=== PATIENT | male | born 1940 | race Caucasian/White ===

== ENCOUNTER → 2017-11-09 | Outpatient (CLI) | payer MEDICARE ==
[~2017-11-09] MED LIST: ASPI-715 PO; CLO75 PO; LISI-1 PO; MEGARED; METO-222 PO; NIT4 SL; PRAV40TA78 PO; SIMV-44 PO
[2017-11-09 09:26] LABS: PLATELET COUNT, AUTOMATED 348 K/uL (150-450)
== END ==
LOC: LAB 08:58
PROVIDERS: ATTEND Nurse Practitioner Family
DX: E78.00 Pure hypercholesterolemia, unspecified (principal); I10 Essential (primary) hypertension; R73.9 Hyperglycemia, unspecified; I21.9 Acute myocardial infarction, unspecified; K21.9 Gastro-esophageal reflux disease without esophagitis
CPT/HCPCS: 36415; 82040; 82247; 82310; 82374; 82435; 82465; 82565; 82947; 83036; 83718; 84075; 84132; 84155; 84295; 84450; 84460; 84478; 84520; 85025

== ENCOUNTER 2017-12-07 10:18 | Emergency (ER) | payer OTHER, MEDICARE ==
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
[2017-12-07] MEDS ORDERED: METO1TAB38 (10:31)
--- NOTE | 2017-12-07 11:37 | RADIOLOGY IMAGING REPORT ---
FACILITY: [facility] PATIENT NAME: Shayan Snow : 1940 MR: [id number] V: [id number] EXAM DATE: ORDERING PHYSICIAN: NIRALI FRAUSTO TECHNOLOGIST: Location: [facility] Patient: Shayan Snow : 1940 Visit/Account:[id number] Date of Sevice: 12/07/2017 EXAMINATION: CT Head without intravenous contrast CT Cervical spine without intravenous contrast HISTORY: Trauma. TECHNIQUE: Head: Axial images were obtained from the skull base to the vertex without intravenous contrast. Sa gittal and coronal reformatted images are also submitted. Cervical spine: Axial images were obtained from the skull base through the upper thoracic spine with out IV contrast administration. Coronal and sagittal reformatted images were obtained from the axial source data. One of the following dose optimization techniques was utilized in the performance of this exam: Autom ated exposure control; adjustment of the mA and/or kV according to the patient's size; or use of an i terative reconstruction technique. Specific details can be referenced in the facility's radiology C T exam operational policy. COMPARISON: Noncontrast head CT dated 10/04/2011. FINDINGS: HEAD: Brain volume: Mild generalized volume loss. Ventricles: Negative. Acute ischemic changes: None. Hemorrhage: None. Masses / edema: None. Diaz-white: Stable mild right cerebellar and right occipital encephalomalacia. White matter: Negative. Vessels: Carotid siphon and vertebral artery calcification. Normal density in the dural venous sinus es. Extra-axial: Negative. Calvarium / skull base: Negative. Visualized sinuses / orbits: Negative. CERVICAL SPINE: Alignment: Straightening and slight reversal of the normal cervical lordosis. Cranio-cervical junction: Mild degenerative changes. Otherwise negative. Vertebral bodies: Negative. Posterior elements: Multilevel facet hypertrophy. Hardware: None. Disc Spaces: Multilevel degenerative disc disease. Soft tissues: Arterial calcifications. No soft tissue swelling. Visualized upper chest: Negative. IMPRESSION: 1. No acute intracranial abnormality. 2. No evidence of acute cervical spine fracture. 3. Stable mild encephalomalacia in the right cerebellum and right occipital lobe. 3. Multilevel degenerative disc disease and facet hypertrophy in the cervical spine with straightenin g and slight reversal of the normal lordosis. Report Dictated By: Shyam Salas MD at 12/07/2017 11:27 AM Report E-Signed By: Shyam Salas MD at 12/07/2017 11:33 AM WSN:[id number]
--- NOTE | 2017-12-07 11:38 | RADIOLOGY IMAGING REPORT ---
FACILITY: [facility] PATIENT NAME: Shayan Snow : 1940 MR: [id number] V: [id number] EXAM DATE: ORDERING PHYSICIAN: NIRALI FRAUSTO TECHNOLOGIST: Location: [facility] Patient: Shayan Snow : 1940 Visit/Account:[id number] Date of Sevice: 12/07/2017 EXAMINATION: CT Head without intravenous contrast CT Cervical spine without intravenous contrast HISTORY: Trauma. TECHNIQUE: Head: Axial images were obtained from the skull base to the vertex without intravenous contrast. Sa gittal and coronal reformatted images are also submitted. Cervical spine: Axial images were obtained from the skull base through the upper thoracic spine with out IV contrast administration. Coronal and sagittal reformatted images were obtained from the axial source data. One of the following dose optimization techniques was utilized in the performance of this exam: Autom ated exposure control; adjustment of the mA and/or kV according to the patient's size; or use of an i terative reconstruction technique. Specific details can be referenced in the facility's radiology C T exam operational policy. COMPARISON: Noncontrast head CT dated 10/04/2011. FINDINGS: HEAD: Brain volume: Mild generalized volume loss. Ventricles: Negative. Acute ischemic changes: None. Hemorrhage: None. Masses / edema: None. Diaz-white: Stable mild right cerebellar and right occipital encephalomalacia. White matter: Negative. Vessels: Carotid siphon and vertebral artery calcification. Normal density in the dural venous sinus es. Extra-axial: Negative. Calvarium / skull base: Negative. Visualized sinuses / orbits: Negative. CERVICAL SPINE: Alignment: Straightening and slight reversal of the normal cervical lordosis. Cranio-cervical junction: Mild degenerative changes. Otherwise negative. Vertebral bodies: Negative. Posterior elements: Multilevel facet hypertrophy. Hardware: None. Disc Spaces: Multilevel degenerative disc disease. Soft tissues: Arterial calcifications. No soft tissue swelling. Visualized upper chest: Negative. IMPRESSION: 1. No acute intracranial abnormality. 2. No evidence of acute cervical spine fracture. 3. Stable mild encephalomalacia in the right cerebellum and right occipital lobe. 3. Multilevel degenerative disc disease and facet hypertrophy in the cervical spine with straightenin g and slight reversal of the normal lordosis. Report Dictated By: Shyam Salas MD at 12/07/2017 11:27 AM Report E-Signed By: Shyam Salas MD at 12/07/2017 11:33 AM WSN:[id number]
[2017-12-07] MEDS ORDERED: KETOROLAC 60 MG/2 ML VIAL IM ONE (11:50)
[2017-12-07 12:06] VITALS: BP 147/80
== END 2017-12-07 12:17 | disposition home or self-care (01) ==
LOC: ER 10:26
DX: S06.0X0A Concussion without loss of consciousness, initial encounter (principal); W22.8XXA Striking against or struck by other objects, initial encounter
CPT/HCPCS: 70450; 72125; 96372; 99282; J1885; L0120; L0172

== ENCOUNTER 2017-12-21 03:30 | Emergency (ER) | payer MEDICARE, OTHER ==
[~2017-12-21 03:30] MED LIST changes: +METO1TAB38
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
[2017-12-21] MEDS ORDERED: CYCLOBENZAPRINE HCL 10 MG TAB PO ONE (04:05)
[2017-12-21 04:19] LABS: PLATELET COUNT, AUTOMATED 372 K/uL (150-450)
--- NOTE | 2017-12-21 04:35 | EKG ---
FACILITY: [facility] PATIENT NAME: BRIELLE CHARLES : [id number] MR: [id number] V: [id number] EXAM DATE: ORDERING PHYSICIAN: EUNICE HEATH TECHNOLOGIST: HIMANSHU Uribe Reason : NEURO Blood Pressure : / mmHG Vent. Rate : 073 BPM Atrial Rate : 073 BPM P-R Int : 166 ms QRS Dur : 106 ms QT Int : 388 ms P-R-T Axes : 064 051 040 degrees QTc Int : 427 ms Normal sinus rhythm Normal ECG When compared with ECG of 09-MAR-2015 11:31, No significant change was found Confirmed by AZAEL FLORES ([id number]) on 12/21/2017 6:43:57 AM Referred By: IVANA Confirmed By:AZAEL FLORES
[2017-12-21 05:00] VITALS: BP 167/89
[2017-12-21] MEDS ORDERED: ORPHENADRINE 60MG/2ML INJ IM ONE (05:10)
[2017-12-21] MEDS ORDERED: TIZA-128 PO (05:16)
== END 2017-12-21 05:27 | disposition home or self-care (01) ==
LOC: ER 03:51
DX: S16.1XXA Strain of muscle, fascia and tendon at neck level, initial encounter (principal)
CPT/HCPCS: 84484; 85025; 85651; 86140; 93005; 96372; 99284; A9270; J2360; 82040; 82247; 82310; 82374; 82435; 82565; 82947; 84075; 84132; 84155; 84295; 84450; 84460; 84520

== ENCOUNTER 2018-03-10 09:20 | Inpatient (IN) | payer MEDICARE ==
[~2018-03-10] VITALS: Ht 165.1 cm; Wt 75.7 kg
[~2018-03-10 09:20] MED LIST changes: +TIZA-128 PO
--- NOTE | 2018-03-10 09:37 | ER Report ---
History and Physical Time Seen By MD: 09:37 Hx. of Stated Complaint: DOESN'T FEEL RIGHT IN THE GI AREA. MOSTLY STARTED YESTERDAY BUT HE'S HAD PROBLEMS SINCE HIS BIPASS SURGERY IN 2011 HPI/ROS 77-year-old male with multiple medical problems to include a previous CABG presents to the emergency department with approximately 36 hours of midline, right upper quadrant, and right lower quadrant abdominal pain. He had 3 bowel movements yesterday and vomiting this morning, however he states that he is passing less gas since this morning.. He states the pain radiates to his back. No dysuria or hematuria. No hematochezia or hematemesis. No nausea, vomiting, or diarrhea. No fever or chills. He has had an aorta femoral bypass graft. No chest pain or shortness of breath. Remainder of the 14 system rev: Yes Allergies: Coded Allergies: No Known Drug Allergies (Verified , 03/10/18) Home Meds Reported Medications Metoprolol Succinate/Hctz (Metoprolol ER-Hctz 25-12.5 mg) 25 Mg-12.5 Mg Tab.er.24h 12/07/17 Pravastatin Sodium (PRAVASTATIN SODIUM) 40 Mg Tablet, 40 MG PO QDAY 03/09/15 Lisinopril (Lisinopril) 5 Mg Tablet, 10 MG PO QAM, 0 Refills 05/02/10 Aspirin (Aspirin) 81 Mg Tablet.dr, 81 MG PO DAILY, 0 Refills 05/02/10 Discontinued Scripts Tizanidine Hcl (TIZANIDINE HCL) 4 Mg Tablet, 4 MG PO TID Y for MUSCLE SPASMS, # 20 TAB 0 Refills Prov:EUNICE HEATH MD 12/21/17 Reviewed Nurses Notes: Yes Old Medical Records Reviewed: Yes Hx Smoking: Yes Smoking Status: Current: Some Days Smoker Hx Substance Use Disorder: No Hx Alcohol Use: No Constitutional Vital Sign - Last 24 Hours 03/10/18 03/10/18 03/10/18 03/10/18 09:27 09:28 09:30 09:35 Temp 97.9 Pulse 90 86 Resp 14 B/P (MAP) 138/86 (103) 138/86 150/88 (108) Pulse Ox 96 95 O2 Delivery Room Air 03/10/18 03/10/18 03/10/18 03/10/18 09:45 09:50 10:00 10:05 Pulse 79 71 B/P (MAP) 164/103 (123) 155/88 (110) Pulse Ox 95 95 Intake and Output 03/10/18 03/10/18 03/11/18 14:59 22:59 06:59 Intake Total 1000 ml Balance 1000 ml Physical Exam General Appearance: The patient is alert, has no immediate need for airway protection and no current signs of toxicity. Eyes: Pupils equal and round no injection. Respiratory: Chest is non tender, lungs are clear to auscultation. Cardiac: regular rate and rhythm, pulses palpable and symmetric Gastrointestinal: Abdomen is soft with TTP at the RUQ and RLQ, umbilical hernia which can be reduced, bowel sounds normal. Neck: Neck is supple and non tender. Extremities have full range of motion and are non tender. Skin: No rashes or lesions. DIFFERENTIAL DIAGNOSIS: After history and physical exam differential diagnosis was considered for abdominal pain including but not limited to appendicitis, cholecystitis, gastritis and urinary tract infection. Medical Decision Making Data Points Result Diagram: 03/10/1844 03/10/1844 Laboratory Hematology Test 03/10/18 09:25 03/10/18 09:44 03/10/18 11:40 Urine Color Yellow Urine Clarity Clear Urine pH 6.0 pH (4.8-9.5) Urine Specific Barry 1.011 Urine Protein Negative mg/dL (NEGATIVE) Urine Glucose (UA) 50 mg/dL (NEGATIVE) Urine Ketones Negative mg/dL (NEGATIVE) Urine Blood Negative (NEGATIVE) Urine Nitrite Negative (NEGATIVE) Urine Bilirubin Negative (NEGATIVE) Urine Urobilinogen Negative mg/dL (0.2-1.9) Urine Leukocyte Esterase Negative (NEGATIVE) Urine RBC <1 /HPF (0-2/HPF) Urine WBC None /HPF (0-5/HPF) Urine Squamous Epithelial Cells None /LPF (</=FEW) Urine Bacteria Negative /HPF (NONE-FEW) Urine Hyaline Casts Few /LPF (NONE-FEW) Urine Mucus Few /HPF (NONE-FEW) Red Blood Count 4.22 M/uL (4.00-5.60) Mean Corpuscular Volume 99.4 fL (80.0-96.0) Mean Corpuscular Hemoglobin 34.4 pg (26.0-33.0) Mean Corpuscular Hemoglobin Concent 34.6 g/dL (32.0-36.0) Red Cell Distribution Width 13.8 % (11.5-14.5) Mean Platelet Volume 8.0 fL (7.2-11.1) Neutrophils (%) (Auto) 74.2 % (39.4-72.5) Lymphocytes (%) (Auto) 18.7 % (17.6-49.6) Monocytes (%) (Auto) 6.0 % (4.1-12.4) Eosinophils (%) (Auto) 0.8 % (0.4-6.7) Basophils (%) (Auto) 0.3 % (0.3-1.4) Nucleated RBC Relative Count (auto) 0.0 /100WBC Neutrophils # (Auto) 8.3 K/uL (2.0-7.4) Lymphocytes # (Auto) 2.1 K/uL (1.3-3.6) Monocytes # (Auto) 0.7 K/uL (0.3-1.0) Eosinophils # (Auto) 0.1 K/uL (0.0-0.5) Basophils # (Auto) 0.0 K/uL (0.0-0.1) Nucleated RBC Absolute Count (auto) 0.00 K/uL Peripheral Blood Smear No Y/N Sodium Level 130 mmol/L (137-145) Potassium Level 4.3 mmol/L (3.5-5.0) Chloride Level 96 mmol/L (98-107) Carbon Dioxide Level 23 mmol/L (22-30) Blood Urea Nitrogen 23 mg/dl (9-21) Creatinine 1.60 mg/dl (0.66-1.25) Glomerular Filtration Rate Calc 41.9 Random Glucose 189 mg/dl (75-110) Calcium Level 10.0 mg/dl (8.4-10.2) Total Bilirubin 0.4 mg/dl (0.2-1.3) Aspartate Amino Transf (AST/SGOT) 18 U/L (0-35) Alanine Aminotransferase (ALT/SGPT) 22 U/L (0-56) Alkaline Phosphatase 54 U/L (0-126) Total Protein 6.2 g/dl (6.3-8.2) Albumin 3.8 g/dl (3.5-5.0) Troponin I < 0.012 ng/ml Chemistry Test 03/10/18 09:25 03/10/18 09:44 03/10/18 11:40 Urine Color Yellow Urine Clarity Clear Urine pH 6.0 pH (4.8-9.5) Urine Specific Barry 1.011 Urine Protein Negative mg/dL (NEGATIVE) Urine Glucose (UA) 50 mg/dL (NEGATIVE) Urine Ketones Negative mg/dL (NEGATIVE) Urine Blood Negative (NEGATIVE) Urine Nitrite Negative (NEGATIVE) Urine Bilirubin Negative (NEGATIVE) Urine Urobilinogen Negative mg/dL (0.2-1.9) Urine Leukocyte Esterase Negative (NEGATIVE) Urine RBC <1 /HPF (0-2/HPF) Urine WBC None /HPF (0-5/HPF) Urine Squamous Epithelial Cells None /LPF (</=FEW) Urine Bacteria Negative /HPF (NONE-FEW) Urine Hyaline Casts Few /LPF (NONE-FEW) Urine Mucus Few /HPF (NONE-FEW) White Blood Count 11.2 k/uL (4.5-11.0) Red Blood Count 4.22 M/uL (4.00-5.60) Hemoglobin 14.5 g/dL (14.0-18.0) Hematocrit 41.9 % (42.0-52.0) Mean Corpuscular Volume 99.4 fL (80.0-96.0) Mean Corpuscular Hemoglobin 34.4 pg (26.0-33.0) Mean Corpuscular Hemoglobin Concent 34.6 g/dL (32.0-36.0) Red Cell Distribution Width 13.8 % (11.5-14.5) Platelet Count 349 K/uL (150-450) Mean Platelet Volume 8.0 fL (7.2-11.1) Neutrophils (%) (Auto) 74.2 % (39.4-72.5) Lymphocytes (%) (Auto) 18.7 % (17.6-49.6) Monocytes (%) (Auto) 6.0 % (4.1-12.4) Eosinophils (%) (Auto) 0.8 % (0.4-6.7) Basophils (%) (Auto) 0.3 % (0.3-1.4) Nucleated RBC Relative Count (auto) 0.0 /100WBC Neutrophils # (Auto) 8.3 K/uL (2.0-7.4) Lymphocytes # (Auto) 2.1 K/uL (1.3-3.6) Monocytes # (Auto) 0.7 K/uL (0.3-1.0) Eosinophils # (Auto) 0.1 K/uL (0.0-0.5) Basophils # (Auto) 0.0 K/uL (0.0-0.1) Nucleated RBC Absolute Count (auto) 0.00 K/uL Peripheral Blood Smear No Y/N Glomerular Filtration Rate Calc 41.9 Calcium Level 10.0 mg/dl (8.4-10.2) Total Bilirubin 0.4 mg/dl (0.2-1.3) Aspartate Amino Transf (AST/SGOT) 18 U/L (0-35) Alanine Aminotransferase (ALT/SGPT) 22 U/L (0-56) Alkaline Phosphatase 54 U/L (0-126) Total Protein 6.2 g/dl (6.3-8.2) Albumin 3.8 g/dl (3.5-5.0) Troponin I < 0.012 ng/ml Urinalysis Test 03/10/18 09:25 Urine Color Yellow Urine Clarity Clear Urine pH 6.0 pH (4.8-9.5) Urine Specific Barry 1.011 Urine Protein Negative mg/dL (NEGATIVE) Urine Glucose (UA) 50 mg/dL (NEGATIVE) Urine Ketones Negative mg/dL (NEGATIVE) Urine Blood Negative (NEGATIVE) Urine Nitrite Negative (NEGATIVE) Urine Bilirubin Negative (NEGATIVE) Urine Urobilinogen Negative mg/dL (0.2-1.9) Urine Leukocyte Esterase Negative (NEGATIVE) Urine RBC <1 /HPF (0-2/HPF) Urine WBC None /HPF (0-5/HPF) Urine Squamous Epithelial Cells None /LPF (</=FEW) Urine Bacteria Negative /HPF (NONE-FEW) Urine Hyaline Casts Few /LPF (NONE-FEW) Urine Mucus Few /HPF (NONE-FEW) EKG/Imaging Imaging Results: CT scan of the abdomen/pelvis was obtained. The results of the study are likely developing SOB. The study was read by the radiologist. I viewed the images myself on the PACS system. ED Course/Re-evaluation ED Course 77-year-old male with a history of aorta femoral bypass graft as well as CABG. He presented to the emergency department this morning with right sided and midline abdominal pain relating to the back. His presentation became concerning for an aortic dissection given that his pain worsened, and he complained more more radiation to the back. After speaking with the patient and made the decision to give him IV contrast in spite of his elevated creatinine. He has been hydrated with IV fluids. CT scan shows no evidence of problems with the graft, however it does demonstrate a likely early bowel obstruction. The CT scan findings are consistent with his history and physical. He is still requiring IV pain medication at this time. I spoke with Dr. Garcia about the patient, and he will admit the patient for conservative management of a small bowel obstruction. He has been placed on IV maintenance for months as well as PE are and antinausea and pain medication. I encouraged him to walk around as much as possible. He is nothing by mouth at this time. Decision to Disposition Date: Mar 10, 2018 Decision to Disposition Time: 14:37 Depart Departure Latest Vital Signs Vital Signs Date Time Temp Pulse Resp B/P (MAP) Pulse Ox O2 Delivery O2 Flow Rate FiO2 03/10/18 10:05 71 95 03/10/18 10:00 155/88 (110) 03/10/18 09:28 97.9 14 Room Air Impression: Primary Impression: Small bowel obstruction Condition: Improved Disposition: Admitted from ER Referrals: OTONIEL QUIJANO (PCP) CAIRE NGUYEN MD Mar 10, 2018 09:37
[2018-03-10 09:56] LABS: PLATELET COUNT, AUTOMATED 349 K/uL (150-450)
[2018-03-10] MEDS ORDERED: MORPHINE 4 MG/ML SDV IVP ONE (10:50)
[2018-03-10] MEDS ORDERED: NS(*) 0.9% 500 ML BAG 500 ML IV ONE ×2 (10:50→11:30)
[2018-03-10] MEDS ORDERED: ONDANSETRON 4 MG/2 ML VIAL IVP ONE (11:15)
[2018-03-10] MEDS ORDERED: fentaNYL CITR 100 MCG/2 ML AMP IVP ONE ×2 (11:15→14:45)
--- NOTE | 2018-03-10 11:33 | RADIOLOGY IMAGING REPORT ---
FACILITY: [facility] - [place] PATIENT NAME: Shayan Snow : 1940 MR: [id number] V: [id number] EXAM DATE: ORDERING PHYSICIAN: CARIE NGUYEN TECHNOLOGIST: Location: [facility] - [place] Patient: Shayan Snow : 1940 Visit/Account:[id number] Date of Sevice: 03/10/2018 EXAMINATION: CT abdomen without IV contrast CT pelvis without IV contrast HISTORY: Diffuse abdominal pain to back. Gallbladder versus AAA. COMPARISON: CTA runoff from 04/26/2012. TECHNIQUE: Axial images were taken through the abdomen and pelvis without intravenous contrast. Sag ittal and coronal reformatted images are also submitted. One of the following dose optimization techniques was utilized in the performance of this exam: Autom ated exposure control; adjustment of the mA and/or kV according to the patient's size; or use of an i terative reconstruction technique. Specific details can be referenced in the facility's radiology C T exam operational policy. FINDINGS: Please note that without intravenous contrast, sensitivity to detection of parenchymal disease is lundy ited. Liver/biliary: The gallbladder is partly contracted. No stones visible by CT. There is no biliary david martha dilatation. The liver is homogeneous. Pancreas: Negative. Spleen: Negative. Adrenal glands: Negative. Kidneys: Negative. Pelvic structures: There is a right posterior bladder diverticulum, similar to previous exam. Bowel: Extensive diverticulosis of the colon, worst in the sigmoid colon. Bowel loops are normal in c aliber. There is a normal caliber, thin-walled appendix medial to the cecum. Peritoneum/retroperitoneum/mesenteries: No inflammation adjacent to the sigmoid colon, gallbladder or in the retroperitoneum. Vessels: Extensive atherosclerotic calcifications, including of the visualized coronary arteries. Sin ce previous examination there has been an aortic bypass just below the level of the renal arteries. T he graft is anterior to the [place] aorta, and bifurcates with the graft extending into the bilateral groin. Vascular clips visualized in the groin bilaterally. Musculoskeletal/body wall: Mild degenerative changes of the lower lumbar spine. There is a small fat- containing supraumbilical hernia, and a small fat-containing left inguinal hernia. Lymph nodes: Negative. Lower chest: Negative. IMPRESSION: 1. Extensive atherosclerosis with aortic bypass graft just below the level of the renal arteries sinc e previous exam. 2. Gallbladder is contracted without stones or abnormality by CT. 3. Right posterior bladder diverticulum, unchanged. 4. Diverticulosis of the sigmoid colon without adjacent inflammation. These findings were discussed with CARIE NGUYEN at 03/10/2018 11:22 AM. Report Dictated By: Roxie Mcclure MD at 03/10/2018 11:16 AM Report E-Signed By: Roxie Mcclure MD at 03/10/2018 11:29 AM WSN:[id number]
[2018-03-10] MEDS ORDERED: IOPAMIDOL 76% 100 ML INFUS BTL 100 ML ONE (11:47)
[2018-03-10] MEDS ORDERED: NS 0.9% 25 ML BAG 50 ML ONE (11:47)
--- NOTE | 2018-03-10 12:13 | EKG ---
FACILITY: [facility] PATIENT NAME: BRIELLE CHARLES : [id number] MR: [id number] V: [id number] EXAM DATE: ORDERING PHYSICIAN: CARIE NGUYEN TECHNOLOGIST: AZEB Test Reason : Blood Pressure : / mmHG Vent. Rate : 063 BPM Atrial Rate : 063 BPM P-R Int : 160 ms QRS Dur : 098 ms QT Int : 424 ms P-R-T Axes : 051 036 046 degrees QTc Int : 433 ms Normal sinus rhythm Normal ECG When compared with ECG of 21-DEC-2017 03:38, No significant change was found Confirmed by LEONARD SWAIN ([id number]) on 03/11/2018 6:28:19 AM Referred By: WENDY Confirmed By:LEONARD SWAIN
--- NOTE | 2018-03-10 12:47 | RADIOLOGY IMAGING REPORT ---
[place] [facility] [place] NAME: Shayan Snow : 1940 MR: [id number] V: [id number] EXAM DATE: ORDERING PHYSICIAN: CARIE NGUYEN TECHNOLOGIST: Location: [facility] Patient: Shayan Snow : 1940 Visit/Account:[id number] Date of Sevice: 03/10/2018 Examination: CTA CHEST ABD PEL W WO CONT Comparison: CT abdomen and pelvis without contrast earlier the same day. History: Diffuse abdominal pain. Procedure: Noncontrast and arterial phase imaging of the chest, abdomen, and pelvis with 90 mL intrav enous Isovue 370. Reconstruction of the source data set includes multiplanar 2D in the sagittal and c oronal planes, and 3D reconstructed coronal slab MIP series. One of the following dose optimization techniques was utilized in the performance of this exam: Autom ated exposure control; adjustment of the mA and/or kV according to the patient's size; or use of an i terative reconstruction technique. Specific details can be referenced in the facility's radiology C T exam operational policy. Findings: CTA: Cardiac chambers: Within normal limits. Thoracic aorta: Advanced atherosclerosis with irregular eccentric partially calcified plaque. No thor acic aortic aneurysm or dissection. Aortic arch vessels: Arch vessel origins are mild to moderately atherosclerotic but otherwise unremar kable. Main pulmonary artery: Main pulmonary artery size is normal. No pulmonary artery filling defect throu gh the subsegmental level. Abdominal aorta: Suprarenal abdominal aorta is moderately atherosclerotic but otherwise unremarkable. Aortobifemoral bypass graft originates approximately 1.3 cm inferior to the left renal artery; the g raft is unremarkable and widely patent at the proximal and distal anastomoses. Celiac artery, superior mesenteric artery, and inferior mesenteric artery: Celiac and superior mesent adi arteries are within normal limits. 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 Renal arteries: Focal atherosclerotic prior along the proximal 6 mm of the right main renal artery wi th 70-90% luminal stenosis. Irregular atherosclerotic plaque along the course of the left main renal artery but no definite luminal stenosis. 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 Left iliac arteries: The common iliac artery is occluded with retrograde filling of the external nida c artery. There is high-grade stenosis at the internal iliac origin although the more distal vessel i s patent. CT chest: Mediastinum: Advanced coronary calcifications. No pericardial effusion. No thoracic lymph node enlarg ement. Left hemithyroid 9 mm nodule. Lungs and airways: Negative. Diaphragm: Negative. CT abdomen and pelvis: Liver: Negative. Gallbladder and biliary system: Negative Spleen: Spleen size is normal. Pancreas: Negative. Adrenal glands: Negative. Kidneys and bladder: Bilateral renal cortical thinning. Bilateral small cysts. No renal mass or hydro nephrosis. 2.9 cm diverticulum arising from the right posterior bladder. Vessels: Limited evaluation of venous system due to the phase of enhancement. Bowel and mesentery: Stomach is mildly distended but otherwise unremarkable. There are a few prominen t fluid-filled loops of small bowel in the central abdomen. A short segment of one of these loops salcedo s extend through a wide necked umbilical hernia but there is no evidence of associated obstruction or inflammation at this site. Within the right mid abdomen, separate from the hernia, there is a potent ial transition point (series 11 image 29). No associated bowel wall inflammation. The distal small erwin wel is relatively decompressed. Appendix is unremarkable. Small amount stool in the colon. Distal karen cending colon and sigmoid mild diverticulosis. No colonic inflammation. Pelvic organs: Negative. Lymph nodes: No adenopathy. Free air/free fluid: None. Abdominal wall and subcutaneous tissues: Small wide necked small bowel containing umbilical hernia is noted above. There are umerous small supraumbilical fat-containing ventral hernias as well. No acut e findings.Osseous structures: No thoracic or lumbar spine vertebral body height loss or malalignment . L5-S1 moderately advanced degenerative disc disease. IMPRESSION: 1. Unremarkable aortobifemoral bypass graft. 2. Aortic atherosclerosis with no evidence of aortic aneurysm or dissection. 3. Findings suggestive of a developing small bowel obstruction with a transition point in the right l ateral abdomen as detailed above. No evidence of bowel ischemia or perforation at this time. 4. Additional nonacute findings as described above. Report Dictated By: Clay Tolliver MD at 03/10/2018 12:25 PM Report E-Signed By: Clay Tolliver MD at 03/10/2018 12:42 PM WSN:[id number]
--- NOTE | 2018-03-10 12:47 | RADIOLOGY IMAGING REPORT ---
FACILITY: [facility] PATIENT NAME: Shayan Snow : 1940 MR: [id number] V: [id number] EXAM DATE: ORDERING PHYSICIAN: CARIE NGUYEN TECHNOLOGIST: Location: [facility] - [place] Patient: Shayan Snow : 1940 Visit/Account:[id number] Date of Sevice: 03/10/2018 Portable chest, one view. HISTORY: Diffuse abdominal pain, chest pain. COMPARISON: 03/09/2015. The heart and mediastinum are unremarkable. Pulmonary vessels are unremarkable. The lungs are sligh tly voluminous, unchanged. The pleural surfaces are unremarkable. No pneumothorax. The bones are unre markable. IMPRESSION: No evidence of acute cardiopulmonary disease. Report Dictated By: Charlie Christianson MD at 03/10/2018 12:39 PM Report E-Signed By: Charlie Christianson MD at 03/10/2018 12:42 PM WSN:[id number]
[2018-03-10] MEDS ORDERED: NS(*) 0.9% 1000 ML BAG 1,000 ML IV ONE (14:45)
[2018-03-10 15:02] VITALS: BP 139/79
[2018-03-10] MEDS ORDERED: fentaNYL CITR 100 MCG/2 ML AMP IVP PRN (15:10)
[2018-03-10] MEDS ORDERED: ONDANSETRON 4 MG/2 ML VIAL IVP PRN (15:10)
[2018-03-10] MEDS ORDERED: LISI-362 PO (15:11)
[2018-03-10] MEDS ORDERED: LUTE20CA11 PO (15:11)
[2018-03-10] MEDS ORDERED: METO25TA93 PO (15:11)
[2018-03-10] MEDS ORDERED: NS(*) 0.9% 1000 ML BAG 1,000 ML IV PRN (15:35)
[2018-03-10] MEDS ORDERED: FLUSH 10 ML SYR IVP PRN (17:30)
--- NOTE | 2018-03-10 18:06 | Gen Surgery History & Physical ---
History of Present Illness Chief Complaint Abdominal pain History of Present Illness 77yo male presents with 1 day of upper abdominal pain, greatest along right subcostal margin and along right side. He had an aortobifem bypass 6 years ago and has had some postprandial discomfort since that surgery. His current symptoms feel the same but worse. Symptoms are all postprandial but currently they seem to be more constant but with episodic spikes in his pain. He is passing less flatus then normal although he is passing flatus. Last BM was a small hard stool this morning. He had 3 BMs yesterday, the first one was hard and the other 2 were normal. No unintentional weight loss. CT in ER suspicious for early SBO. He is a vasculopath. In addition to his aortobifem bypass he's had a coronary stent place about 12 years ago. He reports that he is very active and he has no restricted activities due to chest pain, leg cramps , or SOB/dyspnea. No N/V. No diarrhea but he has had some constipation. History Problems: (1) HTN (hypertension) Status: Chronic (2) CAD (coronary artery disease) Status: Chronic (3) PVD (peripheral vascular disease) Status: Chronic (4) S/P aortobifemoral bypass surgery Status: Chronic Home Meds Reported Medications Lutein (LUTEIN) 20 Mg Capsule, 20 MG PO QDAY, CAPSULE 03/10/18 Metoprolol Tartrate (METOPROLOL TARTRATE) 25 Mg Tablet, 1 TAB PO BID, TAB 03/10/18 Lisinopril (LISINOPRIL) 10 Mg Tablet, 10 MG PO BID, TAB 03/10/18 Pravastatin Sodium (PRAVASTATIN SODIUM) 40 Mg Tablet, 40 MG PO QDAY 03/09/15 Aspirin (Aspirin) 81 Mg Tablet.dr, 81 MG PO DAILY, 0 Refills 05/02/10 Discontinued Reported Medications Metoprolol Succinate/Hctz (Metoprolol ER-Hctz 25-12.5 mg) 25 Mg-12.5 Mg Tab.er.24h 12/07/17 Lisinopril (Lisinopril) 5 Mg Tablet, 10 MG PO QAM, 0 Refills 05/02/10 Discontinued Scripts Tizanidine Hcl (TIZANIDINE HCL) 4 Mg Tablet, 4 MG PO TID Y for MUSCLE SPASMS, # 20 TAB 0 Refills Prov:EUNICE HEATH MD 12/21/17 Allergies: Coded Allergies: No Known Drug Allergies (Verified , 03/10/18) Patient History: FH: HTN (hypertension) FATHER Review of Systems All Systems Reviewed/Normal: Yes, Except as Noted Gastrointestinal: Constipation, Abdominal Pain Exam General Appearance: Alert, Awake, No Acute Distress, Afebrile Neuro: No Gross deficits Eyes: PERRLA GI: Other (Soft, mild RUQ and right lateral TTP. Soft, NT, easily reducible UH. Well healed abdominal midline surgical scar.) Extremities: Warm, Perfused Medical Decision Making Data Points Result Diagram: 03/10/1894303/10/18943 Assessment and Plan Problems: (1) Small bowel obstruction Status: Acute Assessment & Plan: 03/10/18: Possible early SBO. Will give him clear diet this evening since he's passing flatus. Will make him NPO after midnight tonight and plan on water-soluble small bowel series tomorrow. 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 The aortobifem graft appears wide open. There is an apparent possible small bowel transition point in his right mid abdomen and given his previous abdominal surgery, he may have an adhesion that is causing problems. Will start with conservative management and get the SBFT tomorrow and go from there. If he fails to improve over the next couple of days then he may require surgical exploration. I have explained this to him and his and they seem to understand and they seem to be agreeable with this plan. Condition Stable. Time Spent: < 30 min Venous Thromboembolism VTE Risk Physician Assess for VTE Risk: Yes Patient's VTE Risk: Low VTE Diagnostic Test 2 Days Prior to Admit: No Antithrombotics Is Pt On Any Antithrombotics?: No LEONARD ROBERTS MD Mar 10, 2018 18:06
[2018-03-10] MEDS ORDERED: CALCIUM CARBONATE 500 MG CHEW PO PRN (18:10)
[2018-03-10] MEDS: METOPROLOL TART 50 MG TAB PO SCH (21:00)
[2018-03-10] MEDS: LISINOPRIL 10 MG TAB PO SCH (21:00)
[2018-03-10 21:20] VITALS: BP 150/85
[2018-03-10] MEDS: fentaNYL CITR 100 MCG/2 ML AMP IVP PRN (21:36)
[2018-03-10 23:48] VITALS: BP 165/82
[2018-03-11] VITALS (8 sets, daily range): BP systolic 123–180; BP diastolic 66–85; Ht 165.1 cm; Wt 75.7 kg
--- NOTE | 2018-03-11 03:25 | EKG ---
[place] [facility] [place] NAME: BRIELLE CHARLES : [id number] MR: [id number] V: [id number] EXAM DATE: ORDERING PHYSICIAN: SHEKHAR MORSE TECHNOLOGIST: HARINI Test Reason : HEARTBURN Blood Pressure : / mmHG Vent. Rate : 095 BPM Atrial Rate : 095 BPM P-R Int : 168 ms QRS Dur : 102 ms QT Int : 346 ms P-R-T Axes : 075 060 062 degrees QTc Int : 434 ms Normal sinus rhythm Normal ECG When compared with ECG of 10-MAR-2018 11:42, Vent. rate has increased BY 32 BPM Confirmed by LEONARD SWAIN ([id number]) on 03/11/2018 6:29:19 AM Referred By: Confirmed By:LEONARD SWAIN
[2018-03-11 03:42] LABS: PLATELET COUNT, AUTOMATED 329 K/uL (150-450)
--- NOTE | 2018-03-11 08:20 | General Surgery Progress Note ---
Subjective Progress Notes Subjective Feeling better this morning. No pain. No flatus or BM. Physical Exam Vital Signs Date Time Temp Pulse Resp B/P (MAP) Pulse Ox O2 Delivery O2 Flow Rate FiO2 03/11/18 06:14 98.4 97 14 143/85 (104) 94 Nasal Cannula 1.0 General Appearance: Alert, Awake, No Acute Distress, Afebrile GI: Other (Soft, right sided TTP, no peritoneal signs.) Extremities: Warm, Perfused Result Diagram: 03/11/18 0322 03/11/18 0322 Assessment and Plan Problems: (1) Small bowel obstruction Status: Acute Assessment & Plan: 03/10/18: Possible early SBO. Will give him clear diet this evening since he's passing flatus. Will make him NPO after midnight tonight and plan on water-soluble small bowel series tomorrow. 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 The aortobifem graft appears wide open. There is an apparent possible small bowel transition point in his right mid abdomen and given his previous abdominal surgery, he may have an adhesion that is causing problems. Will start with conservative management and get the SBFT tomorrow and go from there. If he fails to improve over the next couple of days then he may require surgical exploration. I have explained this to him and his and they seem to understand and they seem to be agreeable with this plan. 03/11/18: Feeling better but still no flatus and still TTP in right abdomen. WBC up this morning. Will proceed with water soluble SBFT today and will follow his clinical status, labs, etc. Continue ambulation, pulmonary hygiene, lovenox, PPI, etc. Condition Stable. Time Spent: < 30 min Exam Sepsis Risk: No Definite Risk LEONARD ROBERTS MD Mar 11, 2018 08:20
[2018-03-11] MEDS: LISINOPRIL 10 MG TAB PO SCH (08:33)
[2018-03-11] MEDS: PANTOPRAZOLE SOD 40 MG IV VIAL IVP SCH (08:33)
[2018-03-11] MEDS: ENOXAPARIN 40 MG/0.4ML SYR SC SCH (08:33)
[2018-03-11] MEDS: METOPROLOL TART 50 MG TAB PO SCH (08:34)
[2018-03-11] MEDS ORDERED: PRAVASTATIN SOD 20 MG TAB PO SCH (09:00)
[2018-03-11] MEDS ORDERED: DIATRIZOATE MEGL/DIATRIZOA SOD 120 ML SOLN PO ONE (09:02)
[2018-03-11] MEDS: ONDANSETRON 4 MG/2 ML VIAL IVP PRN ×2 (10:29→17:55)
[2018-03-11] MEDS: NS(*) 0.9% 1000 ML BAG 1,000 ML IV PRN (10:41)
[2018-03-11] MEDS ORDERED: LR 500 ML BAG 500 ML IV ONE (14:55)
[2018-03-11] MEDS: fentaNYL CITR 100 MCG/2 ML AMP IVP PRN (16:25)
--- NOTE | 2018-03-11 16:46 | RADIOLOGY IMAGING REPORT ---
FACILITY: [facility] PATIENT NAME: Shayan Snow : 1940 MR: [id number] V: [id number] EXAM DATE: ORDERING PHYSICIAN: LEONARD ROBERTS TECHNOLOGIST: Location: [facility] [place] Patient: Shayan Snow : 1940 Visit/Account:[id number] Date of Sevice: 03/10/2018 Exam type: SMALL BOWEL SERIES History: SBO, water soluble contrast only Comparison: CT abdomen pelvis March 10, 2018 . Findings: The preliminary bronze plater film of the abdomen demonstrated several loops of moderately dilated small dayan l in the midabdomen measuring up to 4 cm in diameter. Contrast is present in urinary bladder from re cent CT scan and there are faint nephrograms noted bilaterally. There are numerous surgical clips in the midabdomen. The patient was given a Gastrografin suspension to swallow.. The Gastrografin freely pass through th e small bowel to the transverse colon in one hour and 20 minutes. Several small bowel loops in the m idabdomen did appear mildly dilated although obviously nonobstructive. Mucosal detail of the small b owel was somewhat limited due to the water-soluble nature with contrast. Fluoroscopy was not performed due to the portable nature of the examination IMPRESSION: 1. Gastrografin freely passed through the small bowel to the transverse colon one hour and 20 minute s with no evidence of bowel obstruction. Several loops of small bowel in the midabdomen did remain mildly dilated at 4 cm Report Dictated By: Constanza Bishop MD at 03/11/2018 4:37 PM Report E-Signed By: Constanza Bishop MD at 03/11/2018 4:41 PM [id number]
[2018-03-11] MEDS: ACETAMINOPHEN(*)1000 MG/100 ML 100 ML IVPB PRN (19:48)
[2018-03-11] MEDS: METOPROLOL TART 5 MG/5 ML VIAL IVP SCH (19:49)
[2018-03-12] VITALS (17 sets, daily range): BP systolic 129–151; BP diastolic 62–81
[2018-03-12] MEDS: NS(*) 0.9% 1000 ML BAG 1,000 ML IV PRN ×2 (00:03→09:38)
[2018-03-12] MEDS: METOPROLOL TART 5 MG/5 ML VIAL IVP SCH ×5 (00:04→19:23)
[2018-03-12 06:04] LABS: PLATELET COUNT, AUTOMATED 287 K/uL (150-450)
--- NOTE | 2018-03-12 06:41 | RADIOLOGY IMAGING REPORT ---
FACILITY: [facility] PATIENT NAME: Shayan Snow : 1940 MR: [id number] V: [id number] EXAM DATE: ORDERING PHYSICIAN: LEONARD ROBERTS TECHNOLOGIST: Location: [facility] [place] Patient: Shayan Snow : 1940 Visit/Account:[id number] Date of Sevice: 03/12/2018 Abdomen: Indication: Obstruction. Technique: A single supine film was obtained. Comparison: Small bowel series from 03/11/2018. Findings: Contrast material is now observed in the distal transverse colon, descending colon, and rec joaquina. The colon is not dilated. There is persistent dilatation of multiple small bowel loops in the mi d abdomen. The findings are consistent with partial small bowel obstruction or ileus. The skeletal an d soft tissue structures are unchanged. Impression: Findings consistent with partial small bowel obstruction or ileus. Report Dictated By: Sarwat Rice MD at 03/12/2018 6:34 AM Report E-Signed By: Sarwat Rice MD at 03/12/2018 6:37 AM [id number]
--- NOTE | 2018-03-12 07:27 | General Surgery Progress Note ---
Subjective Progress Notes Subjective Feeling better this morning but developed severe abdominal pain after starting clear diet last night and then he threw it up. No flatus or BM. Physical Exam Vital Signs Date Time Temp Pulse Resp B/P (MAP) Pulse Ox O2 Delivery O2 Flow Rate FiO2 03/12/18 05:44 71 142/63 (89) 03/12/18 04:44 12 91 Nasal Cannula 0.5 03/11/18 22:28 98.0 General Appearance: Alert, Awake, No Acute Distress, Afebrile GI: Soft and Non-Tender Extremities: Warm, Perfused Result Diagram: 03/12/18 0535 03/12/18 0535 Assessment and Plan Problems: (1) Small bowel obstruction Status: Acute Assessment & Plan: 03/10/18: Possible early SBO. Will give him clear diet this evening since he's passing flatus. Will make him NPO after midnight tonight and plan on water-soluble small bowel series tomorrow. 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 The aortobifem graft appears wide open. There is an apparent possible small bowel transition point in his right mid abdomen and given his previous abdominal surgery, he may have an adhesion that is causing problems. Will start with conservative management and get the SBFT tomorrow and go from there. If he fails to improve over the next couple of days then he may require surgical exploration. I have explained this to him and his and they seem to understand and they seem to be agreeable with this plan. 03/11/18: Feeling better but still no flatus and still TTP in right abdomen. WBC up this morning. Will proceed with water soluble SBFT today and will follow his clinical status, labs, etc. Continue ambulation, pulmonary hygiene, lovenox, PPI, etc. 03/12/18: Continued SBO even though contrast seem to rapidly transit into colon on SBFT yesterday. He developed severe abdominal pain and N/V after clear diet yesterday and this morning's KUB with worsened dilated small bowel diffusely through abdomen. He's getting frustrated as he feels like we aren't doing anything to address his SBO. I reiterated to him (as I explained to him when I admitted him) that we try conservative therapy initially with SBOs and we try to avoid surgery if possible as 70% of SBOs due to adhesions resolve with conservative management and surgery can lead to more adhesions. Since he's been here for 3 days and he's not improving, will proceed with surgical exploration this evening. I explained surgery to him and that he can't eat so that his stomach is empty during anesthesia induction to prevent aspiration and he became frustrated that I won't let him eat. After explaining everything to him, he seems agreeable with this plan. Hold lovenox today. Continue PPI, etc. Condition Stable. Time Spent: < 30 min Exam Sepsis Risk: No Definite Risk LEONARD ROBERTS MD Mar 12, 2018 07:27
[2018-03-12] MEDS: PANTOPRAZOLE SOD 40 MG IV VIAL IVP SCH (08:43)
[2018-03-12] MEDS ORDERED: NORMOSOL R SOLN(*) 1000 ML BAG 1,000 ML IV ONE (15:00)
[2018-03-12] MEDS: ACETAMINOPHEN(*)1000 MG/100 ML 100 ML IVPB PRN (15:01)
[2018-03-12] MEDS ORDERED: LIDOCAINE 2% IV 100 MG/5ML SYR ONE (15:32)
[2018-03-12] MEDS ORDERED: PROPOFOL EMUL(*) 10MG/ML 20 ML 20 ML ONE (15:32)
[2018-03-12] MEDS ORDERED: fentaNYL CITR 250 MCG/5 ML AMP ONE (15:33)
--- NOTE | 2018-03-12 15:54 | Medical Nutrition Therapy ---
Nutrition Anthropometrics Height (Inches): 65.00 Height (Calculated Centimeters: 165.238607 Weight (Pounds): 167 Weight (Calculated Kilograms): 75.750 BMI: 27.8 Matt Nutrition Score: Adequate Matt Nutrition Risk Score: 21 Dietary Referral Nutrition Risk Factors: Nutrition Risk Comment: Physical Findings Physical Appearance: Overweight BMI 25-29 Skin Appearance Skin Appearance: Edema Edema Location Modifier: Edema Location: Type of Edema: Degree of Edema: Gastrointestinal Symptoms GI Symtoms: Diarrhea, Change in Bowel Pattern Tube Present: Bowel Sounds: Recent Bowel Pattern: Stool Characteristics: Nutritional Diagnosis Nutritional Risk Acuity 1: GI Obstruction Past Medical History: 03/11. Hx of HTN, coronary artery disease, peripheral vascular disease, aortobifemoral bypass surgery. Nutritional Acuity: 1-High Nutrition Diagnosis: Altered GI Function Nutrition Etiology: Physiological Causes Nutrition Problem/Etiology/Sym: Altered GI function, as related to physiological causes, as evidenced by pain in the abdominal region and GI obstruction. Energy Requirement: 1822 ([place] [address] jeor AF 1.3) Protein Requirement: 75 (1g/kcal) Fluid Requirement: 1822 (1ml/kcal) Diet Type: NPO (Nothing by Mouth) Nutrition Intervention: Incr diet as tolerated Nutrition Monitoring & Eval RD Patient Assessment Time: [address] Assessment Type: RD Assessment Patient Nutrition Acuity: 1-High Follow Up Date: Mar 14, 2018 Nutritional Comment: 03/11. Admitted for abdominal pain. Pt has small bowel obstruction. WBC is up. 16.1, as well as Random BG, 125, and Creatinine 1.4. Pt is NPO, but will increase diet as tolerated. Pt is 65 in, 167lbs, with a BMI of 27.8. BMI is overweight. Will cont to monitor pts labs. MR 03/12. Pt cont to have abdominal pain. Diet switched back to NPO after experiencing nausea and vomitting with clear liquid diet yesterday. Pts creatinine is elevated 1.4 and WBC is elevated 12.5. RBC low, 3.6. Pt has a BMI of 27.8, which is considered the overweight status. noted they armando proceed with surgical exploration this evening because pt is not improving. Cont to monitor pt diet and labs. SOFIE CUI Mar 12, 2018 15:50
[2018-03-12] MEDS: HYDROmorphone HCL 2 MG/ML SDV IVP PRN ×2 (16:36→20:19)
[2018-03-12] MEDS ORDERED: DEXAMETHASONE SOD PHOS 10MG/ML ONE (17:28)
[2018-03-12] MEDS ORDERED: ONDANSETRON 4 MG/2 ML VIAL ONE (17:29)
[2018-03-12] MEDS ORDERED: ROCURONIUM BROM 10 MG/ML 5 ML ONE (17:30)
[2018-03-12] MEDS ORDERED: SUCCINYLCHOL CHL 200MG/10ML VL ONE (17:30)
[2018-03-12] MEDS ORDERED: KETAMINE HCL 200 MG/20 ML MDV ONE (17:35)
[2018-03-12] MEDS ORDERED: ERTAPENEM(*) 1 GM VIAL 1 GM in NS(*) 0.9% 100 ML ADDVANT BAG 100 ML IVPB ONE (17:50)
[2018-03-12] MEDS ORDERED: ROPIVACAINE 0.5% 20 ML VIAL ONE (17:53)
[2018-03-12] MEDS ORDERED: fentaNYL CITR 100 MCG/2 ML AMP ONE ×3 (18:32→19:35)
[2018-03-12] MEDS ORDERED: SUGAMMADEX SOD 200 MG/2 ML SDV ONE (18:33)
[2018-03-12] MEDS ORDERED: BENZOCAINE/MENTHOL 1 EACH LOZG PO PRN (19:10)
[2018-03-12] MEDS: LABETALOL HCL 100 MG/20ML VIAL ONE ×2 (19:23→19:38)
--- NOTE | 2018-03-12 19:23 | Post Operative Progress Note ---
Post Operative Progress Note Date: Mar 12, 2018 Time: 19:07 Surgeon: Jose Dictation number: [id number] Anesthesia: GETA by Dr. Bass Pre-Op Diagnosis: Persistent SBO Post-Op Diagnosis: GRETEL Findings: Several adhesions in his abdomen between small bowel and small bowel, small bowel and transverse colon, small bowel and posterior peritoneum, and small bowel and aortobifem graft. The offending adhesion seemed to be in the mid small bowel in right abdomen to the posterior peritoneum. Procedure(s): Ex lap, lysis of adhesions Specimen Removed:(May be N/A): None Complications: None Fluids: See anesthesia record Estimated Blood Loss: Minimal Date OP Note Dictated: Mar 12, 2018 Time OP Note Dictated: 19:10 LEONARD ROBERTS MD Mar 12, 2018 19:23
[2018-03-12] MEDS ORDERED: hydrALAZINE HCL 20 MG/ML VIAL ONE (19:29)
--- NOTE | 2018-03-12 19:59 | OPERATIVE REPORT 1 ---
EVENT DATE: March 12, 2018 SURGEON: Shaji Garcia MD ANESTHESIOLOGIST: Francis Bass MD ANESTHESIA: General endotracheal anesthesia. PREOPERATIVE DIAGNOSIS Persistent small-bowel obstruction. POSTOPERATIVE DIAGNOSIS Persistent small-bowel obstruction. PROCEDURE PERFORMED Exploratory laparotomy with lysis of adhesions. COMPLICATIONS None. CONDITION Stable. BLOOD LOSS Minimal FINDINGS The patient had several relatively isolated adhesions through his small bowel. The offending lesion was in the right side of the abdomen and was a band that was attaching a loop of small bowel to the posterior peritoneum. This was where the transition point was located. He also had some adhesions of small bowel to the transverse colon, small bowel to small bowel, and even one that was the small bowel to the aortic graft. All of these were taken down without problems, and the small bowel was run from ligament of Treitz to terminal ileum , and no other problems were found. INDICATIONS This is a 77-year-old gentleman whom I admitted three days ago with findings on CT consistent with small bowel obstruction. He had been having a day of abdominal pain, nausea, and vomiting. We tried to manage him conservatively with bowel rest. He started to improve, and I advanced him to a clear diet, but he immediately developed pain and threw it up. I also got a Gastrografin small bowel follow-through two days ago which revealed contrast going through to his colon, but after I tried feeding him after this, again, he threw up and developed severe pain. I then elected this morning with his consent to proceed with exploratory laparotomy. Of note, his only abdominal surgery was a laparotomy with aortobifemoral bypass down in [place] six years ago. He does note that he has been having some GI symptoms since that surgery, namely feelings of postprandial discomfort of bloating. DESCRIPTION OF PROCEDURE The patient was brought to the operating room and placed supine on the operating table. General endotracheal anesthesia was administered, and his abdomen was prepped and draped in a sterile fashion. Timeout was completed. I made a vertical midline abdominal incision right through the previous scar and dissected through the dermis and subcutaneous fat. I identified the midline fascia and made a vertical incision in the midline fascia. He did have several small fascial defects. I identified the peritoneum actually coming through one of these defects and made a small hole with Metzenbaum scissors and could identify the underlying bowel, which was not adhesed in this location. I made the hole big enough to accommodate my fingers, and that way I could insert my fingers underneath the fascia and then extended the fascial incision along the entire length of the skin incision. I then ran his small bowel and found several adhesions. I found the transition point in the right side of his abdomen and decompressed distal bowel and dilated proximal bowel. This was easily divided with electrocautery. It was a single band of adhesion to the posterior peritoneum. I then continued to run the small bowel. I found other areas of adhesions that could potentially cause problems, and these were all taken down. There was one to the transverse colon, one to another loop of small bowel, and one to the aortobifemoral graft, and they were all taken down rather easily. Once this was done, I had the anesthesiologist place a nasogastric tube, and I positioned it nicely in the stomach. I then ran the small bowel and found no other abnormalities. Of note, I did find a small serosal rent from one of the adhesions, but it was not full thickness, and I oversewed this with interrupted 3-0 silk sutures. No other abnormalities were found, so the abdomen was irrigated and dried. I placed Seprafilm over the bowel under the incision and then closed the midline incision with a running 0 looped PDS suture. The wound was irrigated and dried, and the skin was closed with leonard. Then, the skin was cleaned and dried, and I placed a Prevena VAC dressing over the incision. The patient was awakened, extubated in the operating room, and transported to the recovery room in stable condition having tolerated the procedure without any apparent problems. YENNIFER
[2018-03-13] VITALS (10 sets, daily range): BP systolic 125–180; BP diastolic 67–83
[2018-03-13] MEDS: METOPROLOL TART 5 MG/5 ML VIAL IVP SCH ×4 (00:06→18:25)
[2018-03-13] MEDS: NS(*) 0.9% 1000 ML BAG 1,000 ML IV PRN ×3 (01:31→19:40)
[2018-03-13] MEDS: HYDROmorphone HCL 2 MG/ML SDV IVP PRN ×3 (01:34→18:39)
[2018-03-13 05:50] LABS: PLATELET COUNT, AUTOMATED 274 K/uL (150-450)
--- NOTE | 2018-03-13 07:14 | General Surgery Progress Note ---
Subjective Progress Notes Subjective "I feel pretty good this morning." No flatus or BM yet. Pain well controlled. No N/V. Physical Exam Vital Signs Date Time Temp Pulse Resp B/P (MAP) Pulse Ox O2 Delivery O2 Flow Rate FiO2 03/13/18 05:38 82 133/75 (94) 03/13/18 03:00 94 Nasal Cannula 3.0 03/12/18 20:50 12 03/12/18 20:44 98.2 General Appearance: Alert, Awake, No Acute Distress, Afebrile GI: Other (Soft, appropriate postop TTP, prevena vac dressing is in place and intact with good vacuum seal. NG with only a little spit-looking output, no bile. Position of NG tip confirmed in stomach during surgery.) Extremities: Warm, Perfused Result Diagram: 03/13/1852303/13/18523 Assessment and Plan Problems: (1) Small bowel obstruction Status: Acute Assessment & Plan: 03/10/18: Possible early SBO. Will give him clear diet this evening since he's passing flatus. Will make him NPO after midnight tonight and plan on water-soluble small bowel series tomorrow. 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 The aortobifem graft appears wide open. There is an apparent possible small bowel transition point in his right mid abdomen and given his previous abdominal surgery, he may have an adhesion that is causing problems. Will start with conservative management and get the SBFT tomorrow and go from there. If he fails to improve over the next couple of days then he may require surgical exploration. I have explained this to him and his and they seem to understand and they seem to be agreeable with this plan. 03/11/18: Feeling better but still no flatus and still TTP in right abdomen. WBC up this morning. Will proceed with water soluble SBFT today and will follow his clinical status, labs, etc. Continue ambulation, pulmonary hygiene, lovenox, PPI, etc. 03/12/18: Continued SBO even though contrast seem to rapidly transit into colon on SBFT yesterday. He developed severe abdominal pain and N/V after clear diet yesterday and this morning's KUB with worsened dilated small bowel diffusely through abdomen. He's getting frustrated as he feels like we aren't doing anything to address his SBO. I reiterated to him (as I explained to him when I admitted him) that we try conservative therapy initially with SBOs and we try to avoid surgery if possible as 70% of SBOs due to adhesions resolve with conservative management and surgery can lead to more adhesions. Since he's been here for 3 days and he's not improving, will proceed with surgical exploration this evening. I explained surgery to him and that he can't eat so that his stomach is empty during anesthesia induction to prevent aspiration and he became frustrated that I won't let him eat. After explaining everything to him, he seems agreeable with this plan. Hold lovenox today. Continue PPI, etc. 03/13/18: POD#1 s/p ex-lap, SANDRINE. Doing well. D/C NG tube as it's only putting out a little clear-damian fluid. Continue bowel rest until signs of return of GI function. Ambulate, IS, pulmonary hygiene, lovenox, PPI, etc. Condition Stable. Time Spent: < 30 min Exam Sepsis Risk: Sepsis Risk LEONARD ROBERTS MD Mar 13, 2018 07:14
[2018-03-13] MEDS: PANTOPRAZOLE SOD 40 MG IV VIAL IVP SCH (08:33)
[2018-03-13] MEDS: ONDANSETRON 4 MG/2 ML VIAL IVP PRN (14:45)
[2018-03-14] VITALS (7 sets, daily range): BP systolic 141–165; BP diastolic 54–77
[2018-03-14] MEDS: METOPROLOL TART 5 MG/5 ML VIAL IVP SCH ×2 (00:42→05:22)
[2018-03-14 06:05] LABS: PLATELET COUNT, AUTOMATED 246 K/uL (150-450)
--- NOTE | 2018-03-14 06:57 | General Surgery Progress Note ---
Subjective Progress Notes Subjective No complaints this morning. Pain controlled. Was in urinary retention yesterday and so catheter re-inserted. No flatus or BM yet. No N/V. Physical Exam Vital Signs Date Time Temp Pulse Resp B/P (MAP) Pulse Ox O2 Delivery O2 Flow Rate FiO2 03/14/18 05:19 98.9 76 163/77 (105) 91 Nasal Cannula 2.5 03/13/18 18:24 12 General Appearance: Alert, Awake, No Acute Distress, Afebrile GI: Other (Soft, appropriate postop TTP, prevena vac dressing in place with good seal.) Extremities: Warm, Perfused Result Diagram: 03/14/18 0503/14/1813 Assessment and Plan Problems: (1) Small bowel obstruction Status: Acute Assessment & Plan: 03/10/18: Possible early SBO. Will give him clear diet this evening since he's passing flatus. Will make him NPO after midnight tonight and plan on water-soluble small bowel series tomorrow. 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 The aortobifem graft appears wide open. There is an apparent possible small bowel transition point in his right mid abdomen and given his previous abdominal surgery, he may have an adhesion that is causing problems. Will start with conservative management and get the SBFT tomorrow and go from there. If he fails to improve over the next couple of days then he may require surgical exploration. I have explained this to him and his and they seem to understand and they seem to be agreeable with this plan. 03/11/18: Feeling better but still no flatus and still TTP in right abdomen. WBC up this morning. Will proceed with water soluble SBFT today and will follow his clinical status, labs, etc. Continue ambulation, pulmonary hygiene, lovenox, PPI, etc. 03/12/18: Continued SBO even though contrast seem to rapidly transit into colon on SBFT yesterday. He developed severe abdominal pain and N/V after clear diet yesterday and this morning's KUB with worsened dilated small bowel diffusely through abdomen. He's getting frustrated as he feels like we aren't doing anything to address his SBO. I reiterated to him (as I explained to him when I admitted him) that we try conservative therapy initially with SBOs and we try to avoid surgery if possible as 70% of SBOs due to adhesions resolve with conservative management and surgery can lead to more adhesions. Since he's been here for 3 days and he's not improving, will proceed with surgical exploration this evening. I explained surgery to him and that he can't eat so that his stomach is empty during anesthesia induction to prevent aspiration and he became frustrated that I won't let him eat. After explaining everything to him, he seems agreeable with this plan. Hold lovenox today. Continue PPI, etc. 03/13/18: POD#1 s/p ex-lap, SANDRINE. Doing well. D/C NG tube as it's only putting out a little clear-damian fluid. Continue bowel rest until signs of return of GI function. Ambulate, IS, pulmonary hygiene, lovenox, PPI, etc. 03/14/18: POD#2. Doing well. Still with ileus. Will continue bowel rest until signs of return of bowel function (flatus, etc). Continue IV fluids. Will keep urinary catheter in to keep bladder decompressed and allow detrusor muscles to recover. Will plan on removing catheter tomorrow morning. Continue lovenox, PPI, ambulation, IS, pulmonary hygiene, etc. Condition Stable. Time Spent: < 30 min Exam Sepsis Risk: No Definite Risk LEONARD ROBERTS MD Mar 14, 2018 06:57
[2018-03-14] MEDS: METOPROLOL SUCC XL 25 MG TABCR PO SCH ×2 (08:39→20:56)
[2018-03-14] MEDS: NS(*) 0.9% 1000 ML BAG 1,000 ML IV PRN (08:39)
[2018-03-14] MEDS: PANTOPRAZOLE SOD 40 MG IV VIAL IVP SCH (08:39)
[2018-03-14] MEDS: LISINOPRIL 10 MG TAB PO SCH ×2 (08:39→20:56)
[2018-03-14] MEDS: ENOXAPARIN 40 MG/0.4ML SYR SC SCH (11:45)
--- NOTE | 2018-03-14 13:47 | Medical Nutrition Therapy ---
Nutrition Anthropometrics Height (Inches): 65.00 Height (Calculated Centimeters: [phone] Weight (Pounds): 167 Weight (Calculated Kilograms): 75.750 BMI: 27.8 Matt Nutrition Score: Probably Inadequate Matt Nutrition Risk Score: 18 Dietary Referral Nutrition Risk Factors: Nutrition Risk Comment: Physical Findings Physical Appearance: Overweight BMI 25-29 Skin Appearance Skin Appearance: Edema Edema Location Modifier: Edema Location: Type of Edema: Degree of Edema: Gastrointestinal Symptoms GI Symtoms: Appetite Changes, Change in Bowel Pattern Tube Present: NG Bowel Sounds: Recent Bowel Pattern: Stool Characteristics: Nutritional Diagnosis Nutritional Risk Acuity 1: NPO/CL > 3 days, GI Obstruction, Ileus Past Medical History: 03/11. Hx of HTN, coronary artery disease, peripheral vascular disease, aortobifemoral bypass surgery. Nutritional Acuity: 1-High Nutrition Diagnosis: Altered GI Function Nutrition Etiology: Physiological Causes Nutrition Problem/Etiology/Sym: Altered GI function, as related to physiological causes, as evidenced by pain in the abdominal region and GI obstruction. Energy Requirement: 1822 ([place] [address] jeor AF 1.3) Protein Requirement: 75 (1g/kcal) Fluid Requirement: 1822 (1ml/kcal) Diet Type: NPO (Nothing by Mouth) Nutrition Intervention: Incr diet as tolerated Nutrition Monitoring & Eval RD Patient Assessment Time: [address] Assessment Type: RD Re-Assessment Patient Nutrition Acuity: 1-High Follow Up Date: Mar 18, 2018 Nutritional Comment: 03/11. Admitted for abdominal pain. Pt has small bowel obstruction. WBC is up. 16.1, as well as Random BG, 125, and Creatinine 1.4. Pt is NPO, but will increase diet as tolerated. Pt is 65 in, 167lbs, with a BMI of 27.8. BMI is overweight. Will cont to monitor pts labs. MR 03/12. Pt cont to have abdominal pain. Diet switched back to NPO after experiencing nausea and vomitting with clear liquid diet yesterday. Pts creatinine is elevated 1.4 and WBC is elevated 12.5. RBC low, 3.6. Pt has a BMI of 27.8, which is considered the overweight status. MD noted they armando proceed with surgical exploration this evening because pt is not improving. Cont to monitor pt diet and labs. MR 03/14. NG tube D/C on 03/13. Pt NPO Day 4, recommend nutritional support, unless diet advances. TPN rate of 1500ml/24hr will meet 100% of protein and calorie needs. Notable labs include: elevated WBC 13.7, BUN 22, and Creatinine at 1.5. Other noteable labs include: low RBC 3.24, Hgb 11.2, and Hct 32.8. Increase diet as tolerated, and will cont to monitor labs. MR Nutritional Support Recommended Enteral / Parental: TPN Recommended Rate: 63ml/hr (1500/24hr) + lipids Recommended Calories: 1320 Recommended Protein: 75 Recommended Lipids Calories: 500 Total Recommended Calories: 1820 SOFIE AN Mar 14, 2018 11:02
[2018-03-14] MEDS: HYDROmorphone HCL 2 MG/ML SDV IVP PRN (14:25)
[2018-03-14] MEDS ORDERED: NS(*) 0.9% 1000 ML BAG 1,000 ML IV PRN (15:21)
--- NOTE | 2018-03-14 15:44 | Hospitalist Progress Note ---
Subjective Progress Notes Subjective Asked to see patient for generalized weakness following surgery for SBO. He reports no focal complaints, just a general feeling of mild weakness. No fevers/ chills. No CP/SOB. He has been NPO for ~5 days now and surgery was 2 days ago. He has had some urinary retention and Connelly cath is now in place. Reviewed PMHx , which includes PVD s/p aortobifemoral bypass, HTN, CAD. Physical Exam Vital Signs Date Time Temp Pulse Resp B/P (MAP) Pulse Ox O2 Delivery O2 Flow Rate FiO2 03/14/18 11:42 99.2 56 16 164/68 (100) 96 Nasal Cannula 1.5 Intake and Output 03/15/18 06:59 Intake Total 1264 ml Output Total 0 ml Balance 1264 ml IV Total 1264 ml Drainage Total 0 ml General Appearance: Alert, Awake Neuro: No Gross deficits Cardiovascular: Regular Rate and Rhythm Respiratory: Clear to Auscultation GI: Other (Midline incision dressed/rare BS present) Extremities: Warm, Perfused Psych: Alert & Oriented X3 Result Diagram: 03/14/18 0513 03/14/18 0513 Assessment and Plan Problems: (1) Generalized weakness Status: Acute Assessment & Plan: Probably due to post-op condition/NPO with mild malnourished state. Will start on PPN. Watch I/O, labs, clinical progress. Hopefully, he will be able to start taking PO soon. (2) Small bowel obstruction Status: Acute Assessment & Plan: He is s/p adhesion lysis with Dr. Garcia. (3) CAD (coronary artery disease) Status: Chronic Assessment & Plan: He has been managed with aspirin and statin therapy. He has been started on the aspirin. Once he is taking PO better, will restart his pravastatin. (4) PVD (peripheral vascular disease) Status: Chronic Assessment & Plan: He has been restarted on the aspirin therapy. (5) HTN (hypertension) Status: Chronic Assessment & Plan: He is on chronic lisinopril. Watch BPs/labs. Exam Sepsis Risk: No Definite Risk HOLLY PRATHER MD Mar 14, 2018 15:44
[2018-03-14] MEDS: 1: MULTIVITAMINS(*) 10 ML VIAL 10 ML in AMINO ACID/GLYCER/ELECT 3% INF 1,000 ML 2: AMIN IV SCH (17:08)
[2018-03-15] MEDS: HYDROmorphone HCL 2 MG/ML SDV IVP PRN ×3 (02:22→21:06)
[2018-03-15 02:34] VITALS: BP 124/82
[2018-03-15] MEDS: 1: MULTIVITAMINS(*) 10 ML VIAL 10 ML in AMINO ACID/GLYCER/ELECT 3% INF 1,000 ML 2: AMIN IV SCH ×2 (03:27→14:04)
[2018-03-15 05:44] LABS: PLATELET COUNT, AUTOMATED 229 K/uL (150-450)
--- NOTE | 2018-03-15 07:38 | General Surgery Progress Note ---
Subjective Progress Notes Subjective No complaints this morning. Passing flatus. Pt feeling weak yesterday so PPN started. Physical Exam Vital Signs Date Time Temp Pulse Resp B/P (MAP) Pulse Ox O2 Delivery O2 Flow Rate FiO2 03/15/18 02:34 99.3 74 16 124/82 (96) 90 Nasal Cannula 2.0 General Appearance: Alert, Awake, No Acute Distress, Afebrile GI: Other (Soft, appropriate postop TTP, prevena vac dressing is in place with good vacuum seal.) Extremities: Warm, Perfused Result Diagram: 03/15/18 0533 03/15/18532 Assessment and Plan Problems: (1) Small bowel obstruction Status: Acute Assessment & Plan: 03/10/18: Possible early SBO. Will give him clear diet this evening since he's passing flatus. Will make him NPO after midnight tonight and plan on water-soluble small bowel series tomorrow. 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 The aortobifem graft appears wide open. There is an apparent possible small bowel transition point in his right mid abdomen and given his previous abdominal surgery, he may have an adhesion that is causing problems. Will start with conservative management and get the SBFT tomorrow and go from there. If he fails to improve over the next couple of days then he may require surgical exploration. I have explained this to him and his and they seem to understand and they seem to be agreeable with this plan. 03/11/18: Feeling better but still no flatus and still TTP in right abdomen. WBC up this morning. Will proceed with water soluble SBFT today and will follow his clinical status, labs, etc. Continue ambulation, pulmonary hygiene, lovenox, PPI, etc. 03/12/18: Continued SBO even though contrast seem to rapidly transit into colon on SBFT yesterday. He developed severe abdominal pain and N/V after clear diet yesterday and this morning's KUB with worsened dilated small bowel diffusely through abdomen. He's getting frustrated as he feels like we aren't doing anything to address his SBO. I reiterated to him (as I explained to him when I admitted him) that we try conservative therapy initially with SBOs and we try to avoid surgery if possible as 70% of SBOs due to adhesions resolve with conservative management and surgery can lead to more adhesions. Since he's been here for 3 days and he's not improving, will proceed with surgical exploration this evening. I explained surgery to him and that he can't eat so that his stomach is empty during anesthesia induction to prevent aspiration and he became frustrated that I won't let him eat. After explaining everything to him, he seems agreeable with this plan. Hold lovenox today. Continue PPI, etc. 03/13/18: POD#1 s/p ex-lap, SANDRINE. Doing well. D/C NG tube as it's only putting out a little clear-damian fluid. Continue bowel rest until signs of return of GI function. Ambulate, IS, pulmonary hygiene, lovenox, PPI, etc. 03/14/18: POD#2. Doing well. Still with ileus. Will continue bowel rest until signs of return of bowel function (flatus, etc). Continue IV fluids. Will keep urinary catheter in to keep bladder decompressed and allow detrusor muscles to recover. Will plan on removing catheter tomorrow morning. Continue lovenox, PPI, ambulation, IS, pulmonary hygiene, etc. 03/15/18: POD#3. Doing well. Reports flatus this morning. Will try clear diet. Continue PPN until tolerating diet. Remove beck this morning. Continue lovenox, PPI, ambulation, IS, pulmonary hygiene. Condition Stable. Time Spent: < 30 min Exam Sepsis Risk: No Definite Risk LEONARD ROBERTS MD Mar 15, 2018 07:37
[2018-03-15 08:23] VITALS: BP 145/65
[2018-03-15] MEDS: PANTOPRAZOLE SOD 40 MG IV VIAL IVP SCH (08:24)
[2018-03-15] MEDS: LISINOPRIL 10 MG TAB PO SCH ×2 (08:24→20:59)
[2018-03-15] MEDS: ENOXAPARIN 40 MG/0.4ML SYR SC SCH (08:25)
[2018-03-15] MEDS: METOPROLOL SUCC XL 25 MG TABCR PO SCH ×2 (08:25→20:59)
--- NOTE | 2018-03-15 10:42 | Hospitalist Progress Note ---
Subjective Progress Notes Subjective He reports he is "gaining strength" after starting PPN. He has no complaints this morning. He had no acute events overnight. Patient Complains of: Cardiovascular: No: Chest Pain Respiratory: No: Shortness of Breath Physical Exam Vital Signs Date Time Temp Pulse Resp B/P (MAP) Pulse Ox O2 Delivery O2 Flow Rate FiO2 03/15/18 09:58 90 Nasal Cannula 2.0 03/15/18 08:23 98.1 60 16 145/65 (91) Intake and Output 03/16/18 06:59 Intake Total 240 ml Output Total 350 ml Balance -110 ml Intake Oral 240 ml Output Urine Total 350 ml Drainage Total 0 ml General Appearance: Alert, Awake, No Acute Distress, Afebrile Neuro: No Gross deficits Cardiovascular: Regular Rate and Rhythm Respiratory: No Respiratory Distress, Clear to Auscultation Psych: Alert & Oriented X3, Appropriate Mood & Affect Result Diagram: 03/15/18 0533 03/15/18 0533 Assessment and Plan Problems: (1) Generalized weakness Status: Acute Assessment & Plan: Probably due to post-op condition/NPO with mild malnourished state. He was started on PPN 03/14. Watch I/O, labs, clinical progress. He was advanced to clear liquid diet today. PT/OT have been ordered for patient. (2) Small bowel obstruction Status: Acute Assessment & Plan: He is s/p adhesion lysis with Dr. Garcia. (3) CAD (coronary artery disease) Status: Chronic Assessment & Plan: He has been managed with aspirin and statin therapy. He has been started on the aspirin. Once he is taking PO better, will restart his pravastatin. (4) PVD (peripheral vascular disease) Status: Chronic Assessment & Plan: He has been restarted on the aspirin therapy. (5) HTN (hypertension) Status: Chronic Assessment & Plan: He is on chronic lisinopril. Watch BPs/labs. Exam Sepsis Risk: No Definite Risk MARIBEL ALBA HE[employer] AND [employer] DIRECTOR Mar 15, 2018 10:41
[2018-03-15 11:27] VITALS: BP 166/75
[2018-03-15 20:21] VITALS: BP 161/76
[2018-03-15 23:27] VITALS: BP 102/58
[2018-03-16 02:00] VITALS: BP 144/69
[2018-03-16] MEDS: 1: MULTIVITAMINS(*) 10 ML VIAL 10 ML in AMINO ACID/GLYCER/ELECT 3% INF 1,000 ML 2: AMIN IV SCH (02:03)
[2018-03-16 06:38] LABS: PLATELET COUNT, AUTOMATED 232 K/uL (150-450)
[2018-03-16 07:15] VITALS: BP 149/77
--- NOTE | 2018-03-16 07:25 | General Surgery Progress Note ---
Subjective Progress Notes Subjective No complaints this morning. Passing flatus, had a small BM yesterday. Physical Exam Vital Signs Date Time Temp Pulse Resp B/P (MAP) Pulse Ox O2 Delivery O2 Flow Rate FiO2 03/16/18 07:17 92 Nasal Cannula 2.0 03/16/18 07:15 99.3 63 16 149/77 (101) Intake and Output 03/17/18 07:00 Intake Total 1000 ml Balance 1000 ml IV Total 1000 ml General Appearance: Alert, Awake, No Acute Distress, Afebrile GI: Other (Soft, appropriate postop TTP, prevena vac dressing is in place with good vacuum seal.) Extremities: Warm, Perfused Result Diagram: 03/16/1861303/16/18613 Assessment and Plan Problems: (1) Small bowel obstruction Status: Acute Assessment & Plan: 03/10/18: Possible early SBO. Will give him clear diet this evening since he's passing flatus. Will make him NPO after midnight tonight and plan on water-soluble small bowel series tomorrow. 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 The aortobifem graft appears wide open. There is an apparent possible small bowel transition point in his right mid abdomen and given his previous abdominal surgery, he may have an adhesion that is causing problems. Will start with conservative management and get the SBFT tomorrow and go from there. If he fails to improve over the next couple of days then he may require surgical exploration. I have explained this to him and his and they seem to understand and they seem to be agreeable with this plan. 03/11/18: Feeling better but still no flatus and still TTP in right abdomen. WBC up this morning. Will proceed with water soluble SBFT today and will follow his clinical status, labs, etc. Continue ambulation, pulmonary hygiene, lovenox, PPI, etc. 03/12/18: Continued SBO even though contrast seem to rapidly transit into colon on SBFT yesterday. He developed severe abdominal pain and N/V after clear diet yesterday and this morning's KUB with worsened dilated small bowel diffusely through abdomen. He's getting frustrated as he feels like we aren't doing anything to address his SBO. I reiterated to him (as I explained to him when I admitted him) that we try conservative therapy initially with SBOs and we try to avoid surgery if possible as 70% of SBOs due to adhesions resolve with conservative management and surgery can lead to more adhesions. Since he's been here for 3 days and he's not improving, will proceed with surgical exploration this evening. I explained surgery to him and that he can't eat so that his stomach is empty during anesthesia induction to prevent aspiration and he became frustrated that I won't let him eat. After explaining everything to him, he seems agreeable with this plan. Hold lovenox today. Continue PPI, etc. 03/13/18: POD#1 s/p ex-lap, SANDRINE. Doing well. D/C NG tube as it's only putting out a little clear-damian fluid. Continue bowel rest until signs of return of GI function. Ambulate, IS, pulmonary hygiene, lovenox, PPI, etc. 03/14/18: POD#2. Doing well. Still with ileus. Will continue bowel rest until signs of return of bowel function (flatus, etc). Continue IV fluids. Will keep urinary catheter in to keep bladder decompressed and allow detrusor muscles to recover. Will plan on removing catheter tomorrow morning. Continue lovenox, PPI, ambulation, IS, pulmonary hygiene, etc. 03/15/18: POD#3. Doing well. Reports flatus this morning. Will try clear diet. Continue PPN until tolerating diet. Remove beck this morning. Continue lovenox, PPI, ambulation, IS, pulmonary hygiene. 03/16/18: POD#4. Doing well. Passing flatus and had a solid small BM yesterday. Will try regular diet today. Stop PPN and convert meds to PO. Continue lovenox, PPI, ambulation, IS, pulmonary hygiene, etc. Condition Stable. Time Spent: < 30 min Exam Sepsis Risk: No Definite Risk LEONARD ROBERTS MD Mar 16, 2018 07:24
[2018-03-16] MEDS: LISINOPRIL 10 MG TAB PO SCH ×2 (08:52→21:37)
[2018-03-16] MEDS: DOCUSATE SODIUM 100 MG CAP PO SCH ×2 (08:52→21:37)
[2018-03-16] MEDS: METOPROLOL SUCC XL 25 MG TABCR PO SCH ×2 (08:52→21:37)
[2018-03-16] MEDS: PANTOPRAZOLE SOD 40 MG TABEC PO SCH (08:52)
[2018-03-16] MEDS: ENOXAPARIN 40 MG/0.4ML SYR SC SCH (08:53)
--- NOTE | 2018-03-16 13:19 | Hospitalist Progress Note ---
Subjective Progress Notes Subjective No new complaints. Feeling much better. Physical Exam Vital Signs Date Time Temp Pulse Resp B/P (MAP) Pulse Ox O2 Delivery O2 Flow Rate FiO2 03/16/18 07:17 92 Nasal Cannula 2.0 03/16/18 07:15 99.3 63 16 149/77 (101) Intake and Output 03/17/18 07:00 Intake Total 1480 ml Output Total 0 ml Balance 1480 ml Intake Oral 480 ml IV Total 1000 ml Drainage Total 0 ml General Appearance: Alert, Awake, No Acute Distress, Other (Eating breakfast.) Cardiovascular: Regular Rate and Rhythm Respiratory: Clear to Auscultation GI: Soft and Non-Tender Extremities: Warm, Perfused Psych: Appropriate Mood & Affect Result Diagram: 03/16/1861303/16/18613 Assessment and Plan Problems: (1) Generalized weakness Status: Acute Assessment & Plan: Probably due to post-op condition/NPO with mild malnourished state. He was started on PPN 03/14. Watch I/O, labs, clinical progress. He was advanced to LUCINA today. PT/OT have been ordered for patient. As he is eating well, will wean off of PPN. (2) Small bowel obstruction Status: Acute Assessment & Plan: He is s/p adhesion lysis with Dr. Garcia. (3) CAD (coronary artery disease) Status: Chronic Assessment & Plan: He has been managed with aspirin and statin therapy. He has been started on the aspirin. Will restart his pravastatin today. (4) PVD (peripheral vascular disease) Status: Chronic Assessment & Plan: He has been restarted on the aspirin therapy. (5) HTN (hypertension) Status: Chronic Assessment & Plan: He is on chronic lisinopril. Watch BPs/labs. Time Spent on Plan of Care: < 30 min Exam Sepsis Risk: No Definite Risk JOSE CARLOS PRATHER MD Mar 16, 2018 13:19
[2018-03-16 20:51] VITALS: BP 161/76
[2018-03-16] MEDS ORDERED: PRAVASTATIN SOD 20 MG TAB PO SCH (21:00)
[2018-03-16] MEDS: HYDROmorphone HCL 2 MG/ML SDV IVP PRN (21:37)
[2018-03-16 23:26] VITALS: BP 131/54
[2018-03-17 03:07] VITALS: BP 137/73
[2018-03-17 07:36] LABS: PLATELET COUNT, AUTOMATED 255 K/uL (150-450)
[2018-03-17] MEDS: ENOXAPARIN 40 MG/0.4ML SYR SC SCH (09:00)
[2018-03-17] MEDS ORDERED: ASPIRIN 81 MG ENTERIC COATED PO SCH (09:00)
[2018-03-17] MEDS ORDERED: HYDR-4309 PO (10:02)
[2018-03-17 10:23] VITALS: BP 98/47
[2018-03-17] MEDS: PANTOPRAZOLE SOD 40 MG TABEC PO SCH (10:25)
[2018-03-17] MEDS: DOCUSATE SODIUM 100 MG CAP PO SCH (10:25)
[2018-03-17] MEDS: LISINOPRIL 10 MG TAB PO SCH (10:26)
[2018-03-17] MEDS: METOPROLOL SUCC XL 25 MG TABCR PO SCH (10:27)
[2018-03-17] MEDS: HYDROmorphone HCL 2 MG/ML SDV IVP PRN (10:43)
--- NOTE | 2018-03-17 11:04 | Hospitalist Progress Note ---
Subjective Progress Notes Subjective He reports doing well. He has had some mild hypoxia on RA. Physical Exam Vital Signs Date Time Temp Pulse Resp B/P (MAP) Pulse Ox O2 Delivery O2 Flow Rate FiO2 03/17/18 10:23 98.2 76 20 98/47 (64) 84 Room Air 03/17/18 03:07 2.0 General Appearance: Alert, Awake Cardiovascular: Regular Rate and Rhythm Respiratory: Clear to Auscultation Result Diagram: 03/17/1872403/17/18 0725 Assessment and Plan Problems: (1) Generalized weakness Status: Acute Assessment & Plan: Probably due to post-op condition/NPO with mild malnourished state. He did well with PPN (off) and is now taking PO well. Continue as per General Surgery. (2) Small bowel obstruction Status: Acute Assessment & Plan: He is s/p adhesion lysis with Dr. Garcia. (3) CAD (coronary artery disease) Status: Chronic Assessment & Plan: He has been managed with aspirin and statin therapy. He has been restarted on the aspirin and pravastatin. (4) PVD (peripheral vascular disease) Status: Chronic Assessment & Plan: He has been restarted on the aspirin therapy. (5) HTN (hypertension) Status: Chronic Assessment & Plan: He is on chronic lisinopril. (6) Hypoxia Status: Acute Assessment & Plan: Probably related to post-op state/atelectasis. He will be sent home on temporary oxygen at 2L via nasal cannula. He will follow up with his primary care provider (Jennifer ARIZA) in the next 1-2 weeks. Exam Sepsis Risk: No Definite Risk HOLLY PRATHER MD Mar 17, 2018 11:03
--- NOTE | 2018-03-18 07:41 | PROGRESS NOTE ---
DATE: March 17, 2018 SUBJECTIVE Patient is four days out from exploratory laparotomy with lysis of adhesions. He reports he is feeling fine. He has been up ambulating in the hallway without assistance. He is tolerating a regular diet quite well. PHYSICAL EXAMINATION VITAL SIGNS: Temperature 98.9 orally, pulse rate 59, respiratory rate 16, blood pressure 137/73, O2 saturation 90% GENERAL: The patient is in no acute distress at all. As noted, he has been up and about quite a bit. LUNGS: Clear to auscultation bilaterally. HEART: Regular rate and rhythm, no tachy. ABDOMEN: Bowel sounds are positive. The abdomen is soft. It is nontender. It is diffusely tympanitic but soft. The wound VAC dressing is intact. ASSESSMENT The patient is doing well postoperative day #4, status post exploratory laparotomy and lysis of adhesions for bowel obstruction. PLAN The patient will be discharged home today. The wound VAC dressing will be removed. He is to follow up with Dr. Garcia on March 25, 2018. I discussed with him diet and activity levels at home. YENNIFER
--- NOTE | 2018-03-18 08:41 | DISCHARGE SUMMARY ---
DATE OF ADMISSION: March 10, 2018 DATE OF DISCHARGE: March 17, 2018 ADMISSION DIAGNOSIS Small bowel obstruction. DISCHARGE DIAGNOSES Small bowel obstruction status post exploratory laparotomy with lysis of adhesions. SURGEON Shaji Garcia MD PROCEDURES Exploratory laparotomy with lysis of small bowel adhesions. HISTORY OF PRESENT ILLNESS The patient presented to the Emergency Department with complaints of about 36 hours of abdominal pain which he localized to midline, right upper quadrant, and right lower quadrant. He had had three bowel movements the preceding day and vomiting on the morning of presentation, but did note that he was passing less gas between a good bowel movement and the time of his presentation. He noted the pain radiated to his back. He denied dysuria or hematuria, as well as hematochezia and hematemesis. There was no nausea, vomiting, or diarrhea, and no fever or chills. He also denied shortness of breath and chest pain. On physical exam, his abdomen was noted to be soft with tenderness in the right upper and right lower quadrants. There was an umbilical hernia noted which could be reduced. Bowel sounds appeared normal. Labs at presentations showed a WBC of 11.2 with an H/H of 14.4/41.9. His BUN was noted to be 23 and his creatinine 1.6. The patient was admitted with a diagnosis of partial small bowel obstruction and this was treated in the usual conservative manner with IV fluids and bowel rest. The patient did not show improvement and so was taken to the operating room on March 12, 2018 where he underwent exploratory laparotomy and lysis of multiple small bowel adhesions. Postoperative, the patient did quite well. He was rapidly advancing his diet. On postoperative day #5 he is up and about on his own quite well. He is tolerating a regular diet and so he is being sent home. DISCHARGE INSTRUCTIONS 1. Regular diet. 2. Showering is okay. 3. No heavy lifting (maximum 15 lbs.) times 6 weeks. 4. No driving times 2 weeks. 5. Follow up with Dr. Garcia on March 25, 2018. DISCHARGE PRESCRIPTIONS [place] 5/325 mg 1 tab p.o. q 6 hours p.r.n. Quantity 10, no refills. The patient can resume all of his preadmission home medications. MTDD
== END 2018-03-17 12:10 | disposition home or self-care (01) | DRG 337 ==
LOC: ER 09:57 → MED 14:31
PROVIDERS: ADMIT Surgery; ATTEND Surgery
PROC: 0DNL0ZZ Release Transverse Colon, Open Approach (ICD-10-PCS; 2018-03-12)
PROC: 0DNW0ZZ Release Peritoneum, Open Approach (ICD-10-PCS; 2018-03-12)
PROC: 0DN80ZZ Release Small Intestine, Open Approach (ICD-10-PCS; principal; 2018-03-12 17:28)
DX: K56.51 Intestinal adhesions [bands], with partial obstruction (principal); I10 Essential (primary) hypertension; I25.10 Atherosclerotic heart disease of native coronary artery without angina pectoris; I73.9 Peripheral vascular disease, unspecified; R53.1 Weakness; R33.9 Retention of urine, unspecified; I25.2 Old myocardial infarction; Z95.1 Presence of aortocoronary bypass graft; Z87.891 Personal history of nicotine dependence
CPT/HCPCS: 36415; 36416; 71045; 71275; 74018; 74174; 74176; 74250; 81001; 82040; 82247; 82310; 82374; 82435; 82565; 82947; 82948; 84075; 84132; 84155; 84295; 84450; 84460; 84484; 84520; 85025; 86850; 86900; 86901; 93005; 96361; 96374; 96375; 97161; 97165; 99285; C9113; J0131; J0330; J0360; J1100; J1170; J1650; J2001; J2270; J2405; J2704; J2795; J3010; J3490; J7030; J7040; J7120; Q9967

== ENCOUNTER → 2018-04-16 | Outpatient (CLI) | payer MEDICARE ==
[2018-03-11 08:58] VITALS: BMI 27.8
[~2018-04-16] MED LIST changes: +HYDR-4309 PO; +LISI-362 PO; +LUTE20CA11 PO; +METO25TA93 PO
[2018-04-16 09:01] LABS: PLATELET COUNT, AUTOMATED 340 K/uL (150-450)
== END ==
LOC: LAB 08:41
PROVIDERS: ATTEND Nurse Practitioner Family
DX: I10 Essential (primary) hypertension (principal); E78.5 Hyperlipidemia, unspecified; I12.9 Hypertensive chronic kidney disease with stage 1 through stage 4 chronic kidney disease, or unspecified chronic kidney disease
CPT/HCPCS: 36415; 82040; 82247; 82310; 82374; 82435; 82465; 82565; 82947; 83718; 84075; 84132; 84155; 84295; 84450; 84460; 84478; 84520; 85025

== ENCOUNTER → 2018-04-18 | Outpatient (CLI) | payer MEDICARE ==
[2018-03-11 08:58] VITALS: BMI 27.8
--- NOTE | 2018-04-18 11:13 | RADIOLOGY IMAGING REPORT ---
FACILITY: [facility] [place] NAME: Shayan Snow : 1940 MR: [id number] V: [id number] EXAM DATE: ORDERING PHYSICIAN: OTONIEL QUIJANO TECHNOLOGIST: Location: [facility] [place] Patient: Shayan Snow : 1940 Visit/Account:[id number] Date of Sevice: 04/18/2018 CAROTID HISTORY: Dizziness COMPARISON: None FINDINGS: Grayscale, duplex and color Doppler interrogation of the extracranial carotid and vertebral arteries was performed bilateral. On the right, peak systolic velocities within the common and internal carotid arteries are 97 and 75 cm/sec respectively. A small amount of shadowing plaque is identified the right carotid bulb. Anteg rade flow within the common, internal and external carotid arteries as well as vertebral artery. ICA/ CCA ratio 0.9. On the left, peak systolic velocities within the common and internal carotid arteries are 92 and 89 c m/sec respectively. A small to moderate amount of shadowing plaque identified left carotid bulb exte nding into the proximal left internal carotid artery. Antegrade flow within the common, internal and external carotid arteries as well as vertebral artery. ICA/CCA ratio 0.9. Incidentally noted is a 7 mm hypoechoic right thyroid nodule. Also noted is a 5 mm left thyroid cyst IMPRESSION: There is a small amount of shadowing plaque at the right carotid bulb although no hemodynamically sig nificant lesion seen There is a small to moderate amount of shadowing plaque left carotid bulb extending into the proximal left internal carotid artery although no hemodynamically significant lesions seen Incidental note of a 7 mm hypoechoic right thyroid nodule and a 5 mm left thyroid cyst. Formal thyro id ultrasound may be helpful Velocity criteria are extrapolated from diameter data as defined by the Society of Radiologists in Ul trasound Consensus Conference Radiology 2003; 229;340-346 Report Dictated By: Constanza Bishop MD at 04/18/2018 11:05 AM Report E-Signed By: Constanza Bishop MD at 04/18/2018 11:09 AM WSN:[email or web address]
== END ==
LOC: US 09:56
PROVIDERS: ATTEND Nurse Practitioner Family
DX: E04.1 Nontoxic single thyroid nodule (principal); I65.23 Occlusion and stenosis of bilateral carotid arteries
CPT/HCPCS: 93880

== ENCOUNTER → 2018-09-30 | Outpatient (CLI) | payer MEDICARE ==
[2018-03-11 08:58] VITALS: BMI 27.8
[~2018-09-30] MED LIST changes: -HYDR-4309 PO; +HYDR-653 PO
== END ==
LOC: LAB 09:02
PROVIDERS: ATTEND Nurse Practitioner Family
DX: I12.9 Hypertensive chronic kidney disease with stage 1 through stage 4 chronic kidney disease, or unspecified chronic kidney disease (principal); N18.2 Chronic kidney disease, stage 2 (mild); I25.10 Atherosclerotic heart disease of native coronary artery without angina pectoris
CPT/HCPCS: 36415; 82040; 82247; 82310; 82374; 82435; 82565; 82947; 84075; 84132; 84155; 84295; 84450; 84460; 84520

== ENCOUNTER 2018-11-09 13:18 | Emergency (ER) | payer MEDICARE ==
[2018-03-11 08:58] VITALS: Wt 75.8 kg
--- NOTE | 2018-11-09 13:37 | ER Report ---
History and Physical Time Seen By MD: 13:37 Hx. of Stated Complaint: DIZZINESS ONSET YESTERDAY, WEAKNESS IN L HAND (THAT'S NORMAL) HPI/ROS Was at the grocery store when he experienced generalized weakness and feeling lightheaded. No chest pain or SOB. No fever/chills. [place] somewhat improved when he went and sat in the car. No new focal neuro deficits. No abdominal pain. No n/v/d. Remainder of the 14 system rev: Yes Allergies: Coded Allergies: No Known Drug Allergies (Verified , 03/10/18) Home Meds Reported Medications Hydrocodone Bit/Acetaminophen (NORCO 5-325 TABLET) 1 Each Tablet, 1 EACH PO Q6H PRN for PAIN, #10 TAB 03/17/18 Lutein (LUTEIN) 20 Mg Capsule, 20 MG PO QDAY, CAPSULE 03/10/18 Metoprolol Tartrate (METOPROLOL TARTRATE) 25 Mg Tablet, 1 TAB PO BID, TAB 03/10/18 Lisinopril (LISINOPRIL) 10 Mg Tablet, 10 MG PO BID, TAB 03/10/18 Pravastatin Sodium (PRAVASTATIN SODIUM) 40 Mg Tablet, 40 MG PO HS 03/09/15 Aspirin (Aspirin) 81 Mg Tablet.dr, 81 MG PO DAILY, 0 Refills 05/02/10 Hx Smoking: Yes (1 pack per couple of days) Smoking Status: Current: Some Days Smoker Hx Substance Use Disorder: No Hx Alcohol Use: No Constitutional Vital Sign - Last 24 Hours 11/09/18 11/09/18 11/09/18 11/09/18 13:18 13:25 13:26 13:30 Temp 97.7 Pulse ??? 85 Resp 18 B/P (MAP) 165/88 (113) 165/88 147/79 (101) Pulse Ox 94 O2 Delivery Room Air 11/09/18 11/09/18 11/09/18 11/09/18 13:33 13:45 13:48 14:00 Pulse 86 80 Resp 21 24 B/P (MAP) 142/68 (92) 131/68 (89) Pulse Ox 93 94 11/09/18 11/09/18 11/09/18 11/09/18 14:03 14:15 14:18 14:30 Pulse ??? 89 B/P (MAP) 137/66 (89) 135/57 (83) 11/09/18 11/09/18 11/09/18 11/09/18 14:33 14:38 14:45 14:53 Pulse ??? 85 84 Resp 12 17 15 B/P (MAP) 141/70 (93) Pulse Ox 91 93 95 11/09/18 11/09/18 11/09/18 11/09/18 15:00 15:08 15:15 15:23 Pulse 75 74 Resp 21 17 B/P (MAP) 158/103 (121) 141/67 (91) Pulse Ox 93 94 11/09/18 11/09/18 11/09/18 11/09/18 15:30 15:38 15:45 15:53 Pulse 75 70 Resp 14 20 B/P (MAP) 150/73 (98) 131/76 (94) Pulse Ox 95 95 Intake and Output 11/09/18 11/09/18 11/10/18 14:59 22:59 06:59 Intake Total 600 ml Balance 600 ml Physical Exam General Appearance: The patient is alert, has no immediate need for airway protection and no current signs of toxicity. Eyes: Pupils equal and round no injection. No nystagmus. Respiratory: Chest is non tender, lungs are clear to auscultation. Cardiac: regular rate and rhythm Gastrointestinal: Abdomen is soft and non tender, no masses, bowel sounds nor mal. Extremities have full range of motion and are non tender. Neuro: strength/sensation grossly in tact. No ataxia DIFFERENTIAL DIAGNOSIS: After history and physical exam differential diagnosis was considered for dizziness including but not limited to peripheral and central causes of vertigo, orthostatic causes including dehydration, and blood loss. Medical Decision Making Data Points Result Diagram: 11/09/18 1335 11/09/18 1335 Laboratory Hematology Test 11/09/18 13:35 11/09/18 14:23 Red Blood Count 4.26 M/uL (4.00-5.60) Mean Corpuscular Volume 99.8 fL (80.0-96.0) Mean Corpuscular Hemoglobin 33.3 pg (26.0-33.0) Mean Corpuscular Hemoglobin Concent 33.4 g/dL (32.0-36.0) Red Cell Distribution Width 14.3 % (11.5-14.5) Mean Platelet Volume 8.0 fL (7.2-11.1) Neutrophils (%) (Auto) 66.1 % (39.4-72.5) Lymphocytes (%) (Auto) 24.0 % (17.6-49.6) Monocytes (%) (Auto) 7.7 % (4.1-12.4) Eosinophils (%) (Auto) 1.5 % (0.4-6.7) Basophils (%) (Auto) 0.7 % (0.3-1.4) Nucleated RBC Relative Count (auto) 0.0 /100WBC Neutrophils # (Auto) 7.3 K/uL (2.0-7.4) Lymphocytes # (Auto) 2.6 K/uL (1.3-3.6) Monocytes # (Auto) 0.8 K/uL (0.3-1.0) Eosinophils # (Auto) 0.2 K/uL (0.0-0.5) Basophils # (Auto) 0.1 K/uL (0.0-0.1) Nucleated RBC Absolute Count (auto) 0.00 K/uL Peripheral Blood Smear No Y/N Sodium Level 130 mmol/L (137-145) Potassium Level 4.5 mmol/L (3.5-5.0) Chloride Level 99 mmol/L (98-107) Carbon Dioxide Level 23 mmol/L (22-30) Blood Urea Nitrogen 31 mg/dl (9-21) Creatinine 1.90 mg/dl (0.66-1.25) Glomerular Filtration Rate Calc 34.4 Random Glucose 119 mg/dl (75-110) Calcium Level 9.8 mg/dl (8.4-10.2) Total Bilirubin 0.3 mg/dl (0.2-1.3) Aspartate Amino Transf (AST/SGOT) 18 U/L (0-35) Alanine Aminotransferase (ALT/SGPT) 18 U/L (0-56) Alkaline Phosphatase 60 U/L (0-126) Troponin I < 0.012 ng/ml Total Protein 6.4 g/dl (6.3-8.2) Albumin 3.9 g/dl (3.5-5.0) Urine Color Yellow Urine Clarity Clear Urine pH 6.0 pH (4.8-9.5) Urine Specific [place] 1.012 Urine Protein Negative mg/dL (NEGATIVE) Urine Glucose (UA) Negative mg/dL (NEGATIVE) Urine Ketones Negative mg/dL (NEGATIVE) Urine Blood Negative (NEGATIVE) Urine Nitrite Negative (NEGATIVE) Urine Bilirubin Negative (NEGATIVE) Urine Urobilinogen Negative mg/dL (0.2-1.9) Urine Leukocyte Esterase Negative (NEGATIVE) Urine RBC 1 /HPF (0-2/HPF) Urine WBC <1 /HPF (0-5/HPF) Urine Squamous Epithelial Cells None /LPF (</=FEW) Urine Bacteria Negative /HPF (NONE-FEW) Urine Hyaline Casts Few /LPF (NONE-FEW) Urine Mucus None /HPF (NONE-FEW) Chemistry Test 11/09/18 13:35 11/09/18 14:23 White Blood Count 11.0 k/uL (4.5-11.0) Red Blood Count 4.26 M/uL (4.00-5.60) Hemoglobin 14.2 g/dL (14.0-18.0) Hematocrit 42.5 % (42.0-52.0) Mean Corpuscular Volume 99.8 fL (80.0-96.0) Mean Corpuscular Hemoglobin 33.3 pg (26.0-33.0) Mean Corpuscular Hemoglobin Concent 33.4 g/dL (32.0-36.0) Red Cell Distribution Width 14.3 % (11.5-14.5) Platelet Count 379 K/uL (150-450) Mean Platelet Volume 8.0 fL (7.2-11.1) Neutrophils (%) (Auto) 66.1 % (39.4-72.5) Lymphocytes (%) (Auto) 24.0 % (17.6-49.6) Monocytes (%) (Auto) 7.7 % (4.1-12.4) Eosinophils (%) (Auto) 1.5 % (0.4-6.7) Basophils (%) (Auto) 0.7 % (0.3-1.4) Nucleated RBC Relative Count (auto) 0.0 /100WBC Neutrophils # (Auto) 7.3 K/uL (2.0-7.4) Lymphocytes # (Auto) 2.6 K/uL (1.3-3.6) Monocytes # (Auto) 0.8 K/uL (0.3-1.0) Eosinophils # (Auto) 0.2 K/uL (0.0-0.5) Basophils # (Auto) 0.1 K/uL (0.0-0.1) Nucleated RBC Absolute Count (auto) 0.00 K/uL Peripheral Blood Smear No Y/N Glomerular Filtration Rate Calc 34.4 Calcium Level 9.8 mg/dl (8.4-10.2) Total Bilirubin 0.3 mg/dl (0.2-1.3) Aspartate Amino Transf (AST/SGOT) 18 U/L (0-35) Alanine Aminotransferase (ALT/SGPT) 18 U/L (0-56) Alkaline Phosphatase 60 U/L (0-126) Troponin I < 0.012 ng/ml Total Protein 6.4 g/dl (6.3-8.2) Albumin 3.9 g/dl (3.5-5.0) Urine Color Yellow Urine Clarity Clear Urine pH 6.0 pH (4.8-9.5) Urine Specific [place] 1.012 Urine Protein Negative mg/dL (NEGATIVE) Urine Glucose (UA) Negative mg/dL (NEGATIVE) Urine Ketones Negative mg/dL (NEGATIVE) Urine Blood Negative (NEGATIVE) Urine Nitrite Negative (NEGATIVE) Urine Bilirubin Negative (NEGATIVE) Urine Urobilinogen Negative mg/dL (0.2-1.9) Urine Leukocyte Esterase Negative (NEGATIVE) Urine RBC 1 /HPF (0-2/HPF) Urine WBC <1 /HPF (0-5/HPF) Urine Squamous Epithelial Cells None /LPF (</=FEW) Urine Bacteria Negative /HPF (NONE-FEW) Urine Hyaline Casts Few /LPF (NONE-FEW) Urine Mucus None /HPF (NONE-FEW) Urinalysis Test 11/09/18 14:23 Urine Color Yellow Urine Clarity Clear Urine pH 6.0 pH (4.8-9.5) Urine Specific [place] 1.012 Urine Protein Negative mg/dL (NEGATIVE) Urine Glucose (UA) Negative mg/dL (NEGATIVE) Urine Ketones Negative mg/dL (NEGATIVE) Urine Blood Negative (NEGATIVE) Urine Nitrite Negative (NEGATIVE) Urine Bilirubin Negative (NEGATIVE) Urine Urobilinogen Negative mg/dL (0.2-1.9) Urine Leukocyte Esterase Negative (NEGATIVE) Urine RBC 1 /HPF (0-2/HPF) Urine WBC <1 /HPF (0-5/HPF) Urine Squamous Epithelial Cells None /LPF (</=FEW) Urine Bacteria Negative /HPF (NONE-FEW) Urine Hyaline Casts Few /LPF (NONE-FEW) Urine Mucus None /HPF (NONE-FEW) ED Course/Re-evaluation ED Course Very vague symptoms of feeling lighthead which improved with 500ml of IV fluids. States he does not like to drink water, but tries due to his ongoing kidney disease. Mild hyponatremia. I suggested he try some coconut water for hydration and electrolytes without the sugar in Gatorade. He will follow up with his PCM if symptoms return. Decision to Disposition Date: Nov 09, 2018 Decision to Disposition Time: 15:52 Depart Departure Latest Vital Signs Vital Signs Date Time Temp Pulse Resp B/P (MAP) Pulse Ox O2 Delivery O2 Flow Rate FiO2 11/09/18 15:53 70 20 95 11/09/18 15:45 131/76 (94) 11/09/18 13:26 97.7 Room Air Impression: Primary Impression: Generalized weakness Condition: Improved Disposition: HOME OR SELF-CARE Patient Instructions: Lightheadedness (ED) CARIE NGUYEN MD Nov 09, 2018 13:37
[2018-11-09 13:53] LABS: PLATELET COUNT, AUTOMATED 379 K/uL (150-450)
--- NOTE | 2018-11-09 14:12 | EKG ---
FACILITY: [facility] - [place] PATIENT NAME: BRIELLE CHARLES : [id number] MR: [id number] V: [id number] EXAM DATE: ORDERING PHYSICIAN: CARIE NGUYEN TECHNOLOGIST: VALENTINO Test Reason : DIZZINESS Blood Pressure : / mmHG Vent. Rate : 085 BPM Atrial Rate : 085 BPM P-R Int : 172 ms QRS Dur : 104 ms QT Int : 364 ms P-R-T Axes : 069 051 046 degrees QTc Int : 433 ms Normal sinus rhythm Normal ECG When compared with ECG of 11-MAR-2018 03:09, No significant change was found Confirmed by VIKTORIA OLIVA ([id number]) on 11/09/2018 4:32:26 PM Referred By: WENDY Confirmed By:VIKTORIA OLIVA
--- NOTE | 2018-11-09 14:21 | RADIOLOGY IMAGING REPORT ---
FACILITY: [facility] - [place] PATIENT NAME: Shayan Snow : 1940 MR: [id number] V: [id number] EXAM DATE: ORDERING PHYSICIAN: CARIE NGUYEN TECHNOLOGIST: Location: [facility] Patient: Shayan Snow : 1940 Visit/Account:[id number] Date of Sevice: 11/09/2018 Chest with lateral, 2 views. HISTORY: Dizziness. COMPARISON: 03/10/2018. The descending aorta is mildly calcified. A metal coronary stent is present along the heart. The hear t and mediastinum are otherwise unremarkable. Pulmonary vessels are unremarkable. The lungs are vol uminous. The pleural surfaces are unremarkable. No pneumothorax. IMPRESSION: COPD. Atherosclerosis. Otherwise no evidence of acute cardiopulmonary disease. Report Dictated By: Charlie Christianson MD at 11/09/2018 2:16 PM Report E-Signed By: Charlie Christianson MD at 11/09/2018 2:18 PM WSN:[id number]
--- NOTE | 2018-11-09 14:28 | RADIOLOGY IMAGING REPORT ---
FACILITY: [facility] PATIENT NAME: Shayan Snow : 1940 MR: [id number] V: [id number] EXAM DATE: [id number] ORDERING PHYSICIAN: CARIE NGUYEN TECHNOLOGIST: Location: [facility] - [place] Patient: Shayan Snow : 1940 Visit/Account:[id number] Date of Sevice: 11/09/[address] scan without contrast. HISTORY: Weakness. COMPARISON: 12/07/2017. [address] images were obtained of the brain. No intravenous contrast. One of the following dose optimization techniques was utilized in the performance of this exam: Automated exposure control ; adjustment of the mA and/or kV according to the patient's size; or use of an iterative reconstruct ion technique. Specific details can be referenced in the facility's radiology CT exam operational po licy. FINDINGS: Cerebral and cerebellar sulci are mildly widened. The ventricular system is mildly widened and midlin e in position. The brainstem is normal in size. Areas of encephalomalacia are present in the posterio r aspect of the right occipital lobe and right cerebellar hemisphere, unchanged. Patchy areas of decr eased attenuation are scattered in the centrum semiovale bilaterally. No acute intracranial hemorrhag e. No masses or acute infarcts are identified. No abnormal subdural fluid collections. The carotid ar teries are calcified. The vertebral arteries are calcified. Dentures are present in the mouth. Minima l mucosal thickening is present in the paranasal sinuses. The calvarium is intact. IMPRESSION: Moderate cerebral and cerebellar atrophy. 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 Moderate periventricular white matter disease consistent with chronic ischemic changes. Atherosclerosis. COMMENT: Note that an acute infarct may take up to 12 hours to appear on a CT scan. Report Dictated By: Charlie Christianson MD at 11/09/2018 2:18 PM Report E-Signed By: Charlie Christianson MD at 11/09/2018 2:23 PM WSN:[id number]
[2018-11-09] MEDS ORDERED: NS(*) 0.9% 1000 ML BAG 1,000 ML IV ONE (14:50)
[2018-11-09 15:45] VITALS: BP 131/76
== END 2018-11-09 16:06 | disposition home or self-care (01) ==
LOC: ER 13:38
DX: R53.1 Weakness (principal); E87.1 Hypo-osmolality and hyponatremia
CPT/HCPCS: 70450; 71046; 81001; 84484; 85025; 93005; 96360; 99284; J7030; 82040; 82247; 82310; 82374; 82435; 82565; 82947; 84075; 84132; 84155; 84295; 84450; 84460; 84520

== ENCOUNTER → 2018-12-13 | Outpatient (CLI) | payer MEDICARE ==
[2018-03-11 08:58] VITALS: BMI 27.8
== END ==
LOC: LAB 15:15
PROVIDERS: ATTEND Nurse Practitioner Family
DX: E87.1 Hypo-osmolality and hyponatremia (principal)
CPT/HCPCS: 36415; 82040; 82247; 82310; 82374; 82435; 82565; 82947; 84075; 84132; 84155; 84295; 84450; 84460; 84520